=== PATIENT | male | born 1950 | race Caucasian/White ===

== ENCOUNTER 2021-10-06 13:49 | Outpatient (CLI) | payer MEDICARE, OTHER, SELFPAY ==
--- NOTE | 2021-10-06 | ECG_ITS ---
Measurements Intervals [place] Rate: 84 P: 96 CT: 227 QRS: 197 QRSD: 106 T: 150 QT: 349 QTc: 415 Interpretive Statements SINUS RHYTHM WITH FIRST DEGREE AV BLOCK LIMB LEAD REVERSAL ABNORMAL ECG Electronically Signed On 10-06-2021 14:54:09 SENIOR CARE MANAGER by Christo Deng D.O.
[2021-10-06 14:48] LABS: Hematocrit 45.4 % (42.0-52.0); Hemoglobin 14.9 g/dL (14.0-18.0)
[2021-10-06 19:17] LABS: Hemoglobin A1C 5.7 % (<5.7)
[2021-10-06 19:27] LABS: Alanine Aminotransferase 21 U/L (4-50); Albumin Level 4.4 g/dL (3.5-5.1); Alkaline Phosphatase 84 U/L (38-126); Anion Gap 9 mmol/L (8-16); Aspartate Amino Transferase 28 U/L (17-59); Bilirubin,Total 0.5 mg/dL (0.2-1.3); Blood Urea Nitrogen 26 mg/dL (9-20); Calcium 9.4 mg/dL (8.4-10.2); Carbon Dioxide 27 mmol/L (22-30); Chloride 105 mmol/L (98-107); Cholesterol 242 mg/dL (0-200); Estimated Glomerular Filt Rate 60; Glucose 92 mg/dL (65-110); HDL Direct 55 mg/dL; Potassium 4.2 mmol/L (3.4-5.0); Sodium 141 mmol/L (137-145); Triglycerides 108 mg/dL (<150)
[2021-10-06 19:38] LABS: LDL Cholesterol Direct 163 mg/dL
[2021-10-06 19:57] LABS: Prostate Specific Antigen 0.5 ng/mL (< OR = 4.0)
[2021-10-06 20:07] LABS: Urine Cotinine NEGATIVE
== END 2021-10-06 13:50 | disposition home or self-care (01) ==
PROVIDERS: PCP Nurse Practitioner; Referring Provider Orthopaedic Surgery; Visit Provider Nurse Practitioner
DX: E11.9 Type 2 diabetes mellitus without complications (principal); Z83.3 Family history of diabetes mellitus; Z12.5 Encounter for screening for malignant neoplasm of prostate; Z01.818 Encounter for other preprocedural examination; M16.12 Unilateral primary osteoarthritis, left hip; I44.0 Atrioventricular block, first degree
CPT/HCPCS: 36415; 80053; 80061; 80307; 83036; 84153; 84443; 85014; 85018; 93005; G0103

== ENCOUNTER 2021-11-26 14:03 | Outpatient (CLI) | payer MEDICARE, OTHER, SELFPAY ==
[2021-11-26 15:43] LABS: Basophils Absolute Auto 0.1 K/mm3 (0.0-0.1); Basophils Percent Auto 0.5 % (0.2-1.2); Eosinophils Absolute Auto 0.2 K/mm3 (0-0.3); Eosinophils Percent Auto 1.7 % (0-4.4); Hematocrit 44.7 % (42.0-52.0); Hemoglobin 14.2 g/dL (14.0-18.0); Immature Granulocyte Absolute 0.02 K/mm3 (0.00-0.031); Immature Granulocyte Percent A 0.2 % (0-0.5); Lymphocytes Absolute Auto 3.13 K/mm3 (0.9-3.2); Lymphocytes Percent Auto 33.8 % (18.3-44.2); Mean Corpuscular HGB Conc 31.8 g/dl (32-36); Mean Corpuscular Hemoglobin 30.7 pg (26-34); Mean Corpuscular Volume 96.8 fl (80-100); Mean Platelet Volume 10.1 fl (7.4-10.4); Monocytes Absolute Auto 1.2 K/mm3 (0.1-0.6); Monocytes Percent Auto 13.3 % (2.6-8.5); Neutrophils Absolute Auto 4.7 K/mm3 (1.3-6.7); Neutrophils Percent Auto 50.5 % (45.5-73.1); Platelet Count Result 208 k/mm3 (150-375); Red Blood Count 4.62 M/mm3 (4.6-6.20); White Blood Count 9.3 K/mm3 (4.5-10.0)
[2021-11-26 15:47] LABS: Albumin Level 4.1 g/dL (3.5-5.1); Estimated Glomerular Filt Rate > 60; Glucose 109 mg/dL (65-110)
[2021-11-26 17:28] LABS: Urine Cotinine NEGATIVE
== END 2021-11-26 14:04 | disposition home or self-care (01) ==
LOC: ANHSURGERY 14:13
PROVIDERS: PCP Nurse Practitioner; Visit Provider Orthopaedic Surgery
DX: Z01.818 Encounter for other preprocedural examination (principal); M16.12 Unilateral primary osteoarthritis, left hip
CPT/HCPCS: 80307; 82040; 82565; 82947; 85025; 87081

== ENCOUNTER 2021-12-23 00:14 | Day surgery (SDC) | payer MEDICARE, OTHER, SELFPAY ==
[2021-11-26 14:21] VITALS: BMI 31.3
--- NOTE | 2021-11-26 14:41 | PC.NURSE ---
Report to the Outpatient Waiting Room, entrance under the green pavilion located off [facility], at time _0600 on date _12/23/21 . OR Time: _729 . - You and your visitor will be asked a series of questions to screen for COVID 19 for your protection. - A mask is required within the hospital. Preoperative COVID Testing Requirements: No COVID Test needed if: (proof is required; if not received patient will have Rapid Test prior to entry) - Patient has received COVID Vaccine at least 14 days prior to procedure date or - Patient has positive COVID test result within last 90 days of surgery date. COVID Test needed if above criteria is not met If not COVID vaccinated a COVID test must be conducted within 72 hours of surgery and patient is asked to isolate self from time of testing until procedure. You will go to the [facility] for your COVID testing. The [facility] site is located at the corner of [address] from [facility]. You will only be called if COVID results are positive and your surgeon may reschedule your elective surgery date. Patients may have clear liquids (water, carbonated beverages, clear teas, apple juice) until 3 hours prior to surgery with a maximum of 20 ounces. - No food from midnight until time of surgery Take the following medications with a SIP of water the morning of surgery: ___NONE Medications to discontinue per physician ___LUTEIN 3 DAYS PRE OP Date to take last dose__12/19/21 Please no make-up, nail thai, hairspray, perfume, deodorant, or body powder the day of surgery. No jewelry (including any body piercings) or valuables the day of surgery, leave them at home. Please take a shower or bath the night before, or the morning of, surgery with an antibacterial soap. Wear comfortable, loose fitting clothing. Children are encouraged to wear pajamas. - Jewelry must be removed prior to entering the operating room. Rings and piercings that are not removed may be cut off. - The hospital will not accept responsibility for valuables. - Please leave all valuables, including medications, at home the day of surgery. If you are going home after surgery, a licensed coach tour driver must drive you home. - NO public transportation without another adult. - We recommend that an adult stay with you for 24 hours following discharge. - We also recommend that you do not drive, make important decision, drink alcoholic beverages, or take any drugs that were not prescribed by your health care provider for at least 24 hours after your discharge time. One visitor will be allowed to accompany the patient into the hospital. Patients visitor will be instructed to remain with patient at all times or leave the building. We will allow the visitor to come back to the postoperative area when patient is ready. Follow any additional instructions given to you from your surgeon. VERBAL AND WRITTEN instructions given to __PATIENT and asked if any additional questions and then verbalized understanding. Patient advised to call surgeon office or pre surgery nurse liaison [phone] if any additional questions.
[2021-11-26 15:00] VITALS: BP 138/78; PULSE 66; RESP 18; TEMP 37.1; O2SAT 97
--- NOTE | 2021-12-22 10:47 | WPDANESEPPF ---
Anes - Initial Pre Proc Eval Procedure: Operation Date: 12/23/21 07:30 Proposed Procedures p Left Total Hip Arthroplasty - Matt Burris MD Date/Time: 12/22/21 10:47 Surgeon: Matt Burris MD Pre Op Diagnosis: primary oa left hip Patient Data Age: 71 Gender: M Height: 1.83 m Weight: 104.8 kg Last Vital Signs Temp 37.1 C 11/26/21 15:00 Pulse 66 11/26/21 15:00 Resp 18 11/26/21 15:00 BP 138/78 11/26/21 15:00 Pulse Ox 97 11/26/21 15:00 Allergies Allergy/AdvReac Type Severity Reaction Status Date / Time No Known Allergies Allergy Verified 12/23/21 06:32 Home Medications Medication Instructions Recorded Confirmed Type lutein 20 mg tablet 20 mg PO DAILY 06/11/21 12/23/21 History atorvastatin 20 mg tablet 20 mg PO DAILY #30 tablet 10/14/21 12/23/21 Rx acetaminophen 325 mg tablet 650 mg PO Q6H PRN 11/26/21 12/23/21 History ECG: Date of Service: 10/06/21 Procedure(s): CA 12 lead EKG Accession Number(s): [id number] cc: ~ Measurements Intervals [place] Rate: 84 P: 96 MT: 227 QRS: 197 QRSD: 106 T: 150 QT: 349 QTc: 415 Interpretive Statements SINUS RHYTHM WITH FIRST DEGREE AV BLOCK LIMB LEAD REVERSAL ABNORMAL ECG Electronically Signed On 10-06-2021 14:54:09 SOCIAL SERVICES TECHNICIAN by Christo Deng D.O. Patient hx anesthesia problems: none Family hx anesthesia problems: none Results Review: All pre-operative results and documents have been reviewed as part of the pre-operative evaluation. [facility] Past Medical History Medical History (Updated 12/22/21 @ 10:48 by Jose Leon MD) Arthritis of left hip Family history of diabetes mellitus Hypercholesterolemia Leg pain Painful joint Urination frequency Surgical History Surgical History History of surgery right long head biceps tendon torn and repaired Family History Family History Mother Breast cancer Diabetes mellitus Hypertension Father Diabetes mellitus Sibling Diabetes mellitus Social History Social History Smoking status: Never smoker Second hand tobacco smoke exposure: No Additional smoking assessment comments: DENIES ANY FORM OF TOBACCO USE Alcohol intake: current Alcohol use details: ONE DRINK PER MONTH Substance use: never Living arrangements: with family Spiritual care concerns: No Anes - Eval Final PreProcedure Day of Procedure 12/22/21 10:47 Patient weight: obese Heart: regular rate and rhythm Lungs: clear to auscultation and normal air movement Airway: Mallampati scale class II Neurological: alert and oriented Last oral intake: >/= 8 hours ASA classification: II Emergent: no Anesthetic plan: proceed Anesthesia type and monitoring: general ETT Results Review: All pre-operative results and documents have been reviewed as part of the pre-operative evaluation. Informed Consent: The patient's anesthetic plan and its attendant risks and benefits were discussed with the patient/family/POA. Questions were solicited and answers provided to the satisfaction of the patient/family/POA.
[2021-12-22 11:16] VITALS: BP 161/78; PULSE 84; RESP 14; TEMP 36.2; O2SAT 100
[2021-12-23] VITALS (12 sets, daily range): BP systolic 131–166; BP diastolic 66–84; PULSE 60–97; RESP 8–22; TEMP 36.2–36.8; O2SAT 94–100
--- NOTE | ~2021-12-23 | XR_ITS ---
EXAMINATION: XR hip LT min 2V DATE: 12/23/2021 10:26 INDICATION: Total left hip arthroplasty. Postop. TECHNIQUE: 2 views of left hip were obtained. COMPARISON: Left hip radiographs 12/23/2021 FINDINGS: There is a total left hip arthroplasty in near-anatomic alignment. No fracture. There is ga s in the hip joint and soft tissues, consistent with recent surgery. IMPRESSION: 1. Total left hip arthroplasty in near-anatomic alignment. Reviewed, dictated and finalized at location A.
[2021-12-23] MEDS: TRANEXAMIC ACID 1,000MG/ISO100 1,000 MG/100 ML BAG 200 MG IVPB (06:19)
[2021-12-23] MEDS: ACETAMINOPHEN 500 MG TABLET 1000 MG PO (06:19)
[2021-12-23] MEDS: LACTATED RINGERS 1,000 ML 30 ML IV CONT ×2 (06:19→10:45)
--- NOTE | 2021-12-23 07:09 | WPDHPUPDATE1 ---
History and Physical Update Update Date/Time: 12/23/21 07:09 History and Physical has been reviewed, including an updated exam of the patient. There are NO changes in the patient's condition. Risks, benefits, and alternatives have been discussed and questions answered. Patient agrees to proceed with procedure.
[2021-12-23] MEDS: ceFAZolin 2 GM/D5W 50 ML 2 GM/50 ML BAG IVPB ×2 (07:26→17:41)
--- NOTE | 2021-12-23 10:25 | W.PM.PROC2 ---
Procedure Note - Detailed Date of Procedure 12/23/21 Pre-op Diagnosis primary oa left hip Post-op Diagnosis Same Procedure Performed Left Total Hip Arthroplasty Surgeon Matt Burris MD Schedule Checker Ernestina Love PA-C Anesthesia General Findings Preoperative leg 1.6 cm short. Lengthening correction templated. Bone quality good. Partial leg length correction obtained. Description of Procedure The patient was given preoperative antibiotics. A general anesthetic was administered. The patient was carefully placed in the lateral decubitus position on the PEG board. The shoulders and hips were carefully positioned for component and leg length positioning reference. The hip was prepped and draped in the usual sterile fashion. A longitudinal incision was created over the posterior aspect of the greater trochanter. Careful dissection was brought down through the deep fascia with electrocautery. A minimally invasive optimized posterior approach to the hip was performed. The short external rotators and capsule were taken down in an L-shaped capsulotomy. The tissue was tagged for later repair using number 2 high strength suture. The femoral neck was measured and taken in situ. The femoral head was removed. The acetabulum was carefully exposed. The inferior capsule was released. The labrum was resected. The acetabulum was sequentially reamed to one over the intended cup size. The cup was impacted into position with excellent press-fit. Typical anatomic landmarks, including the bony contact points as well as the inferior transverse acetabular ligament were used to confirm cup positioning with preoperative templating. Attention was turned to the femur, which was carefully exposed. The hip was reamed and then broached sequentially. Excellent press-fit was obtained with the broach. The hip was trialed. Measurements were utilized, including the lesser trochanter as well as the center of the femoral head and the tip of the trochanter, and excellent assessment of the offset and leg lengths were confirmed. The real component was impacted into position. Trialing confirmed appropriate leg length and offset with soft tissue balancing as well apparent feel of the leg, both at the knee and the heel. Soft tissues were assessed using the the iliotibial band. Reduction of the posterior capsule and external rotators were also used as a secondary assessment. The hip was copiously irrigated with pulsatile lavage antibiotic solution periodically throughout the procedure. The real components were then assembled and reduced. The hip was stable throughout typical maneuvers, including extension, external rotation to 70 degrees, the position of sleep as well as flexion to 90 degrees with internal rotation past 45 degrees. The shake test confirmed stability without impingement. Osteophytes were removed as necessary. The short external rotators and capsule were repaired back to the posterior trochanter through drill holes. The deep fascia was repaired with running number 2 Quill suture, followed by 0 Stratafix suture and 2-0 Stratafix suture in the dermis. Steri-Strips were placed on the skin, followed by a sterile silver occlusive dressing. There were no complications. Meticulous hemostasis was maintained with the AquaMantys device. The patient was brought to the recovery room in stable condition. There were no complications. Physician hr administrative assistant, Ernestina Love PA-C, required for surgery; including patient positioning, draping, tissue retraction, maintaining instrument position, hip dislocation/ relocation, wound closure, and dressing placement. Implants The Accolade II hip stem, 132 degree size 7 , was utilized with excellent press-fit. The 58mm 10 degree elevated Trident II acetabular component was impacted with excellent press-fit stability. The +2.5, 36 mm Biolox ceramic femoral head was utilized. Estimated Blood Loss 200 Drains No Packing No Pathology N
--- NOTE | 2021-12-23 10:28 | SUR.PHASEI ---
XRAY OF HIP DONE AT BEDSIDE.
--- NOTE | 2021-12-23 11:11 | ADMGEN ---
This patient, Sancho Morales, was admitted to Medical Room 246-. Patient/family oriented to hospital policies and general routines including ID bracelet, bed and alarms, visiting hours, pain management, procedures, bathroom and other care routines, personal items, smoking policy, room service/diet, and visiting hours. Information on how to activate the Rapid Response Team has been discussed. Patient/Family are encouraged to report perceived risks to care and to ask questions if they do not understand what they are told or what they should do.
[2021-12-23] MEDS: SODIUM CHLORIDE 0.9% IV 1,000 ML 125 ML IV CONT (11:26)
[2021-12-23] MEDS: SENNA/DOCUSATE SODIUM TABLET 2 TAB PO (17:42)
[2021-12-23] MEDS: ASPIRIN 81 MG ENTERIC TABLET PO (17:42)
[2021-12-23] MEDS: MELOXICAM 7.5 MG TABLET PO (17:42)
[2021-12-23] MEDS: FAMOTIDINE 20 MG TABLET PO (20:53)
[2021-12-24] MEDS: ceFAZolin 2 GM/D5W 50 ML 2 GM/50 ML BAG IVPB ×2 (00:11→10:17)
[2021-12-24 00:36] VITALS: BP 121/66; PULSE 90; RESP 18; TEMP 36.8; O2SAT 96
[2021-12-24 03:58] VITALS: BP 121/61; PULSE 86; RESP 20; TEMP 36.6; O2SAT 96
--- NOTE | 2021-12-24 08:45 | P.DS_ITS ---
DS: Admitting Diagnosis Discharge Date 12/24/21 Admitting Diagnosis OA Left hip DS: Discharge Diagnosis Discharge Diagnosis (1) Status post total hip replacement, left: Code(s): Z96.642 - Presence of left artificial hip joint Status: Acute Assessment and Plan: Postop day 1: Total hip arthroplasty. Patient tolerated procedure well. No complications. Pain manageable with pain medication. No numbness or tingling. We had a lengthy discussion regarding postoperative wound care, limitations, expectations, and exercises. Patient shows good understanding. Patient has had initial physical therapy and is tolerating it well. DVT prophylaxis: 81 mg baby aspirin b.i.d. for 14 days. Short frequent walks. Pain medication: Percocet. Meloxicam Patient has followup appointment with Dr. Burris in 3 weeks DS: Summary Hospital Course Reason for hospitalization: Total hip arthroplasty Hospital Course: Patient tolerated procedure well. Has had initial PT/OT and made good progress. Status at Discharge Functional status at discharge: uses cane/walker Overall status at discharge: patient is progressing back to baseline Time Spent with Patient Time attestation: Total time spent providing and/or coordinating discharge services: Exam Narrative: Overweight 71 y/o male. Resting comfortably in bed. Wearing compression socks bilaterally. Dressing dry and intact with no drainage. Moderate swelling. No ecchymosis. No erythema. No hematoma. Range of motion limited due to pain. Calf nontender. Thigh nontender. Neurologic status intact. No varicosities. Distal pulses palpable. Discharge Plan Discharge Patient Disposition: Home, Self-Care Discharge Instructions: See green instruction sheet Stand Alone Forms: General Discharge Instructions Follow-up/Referrals: Ernestina Love PA [Physician Track Laborer] - Discharge Medications: New meloxicam 15 mg tablet 15 mg PO DAILY Qty: 30 RF: 0 aspirin 81 mg tablet,delayed release (DR/EC) 81 mg PO BID 14 Days Qty: 28 RF: 0 oxycodone-acetaminophen 5-325 mg tablet 1 - 2 tablet PO Q4-6H MDD 6 PRN (Reason: pain) Qty: 30 RF: 0 Continued lutein 20 mg tablet 20 mg PO DAILY RF: 0 acetaminophen 325 mg tablet 650 mg PO Q6H PRN (Reason: Pain) RF: 0 atorvastatin 20 mg tablet 20 mg PO DAILY Qty: 30 RF: 5
--- NOTE | 2021-12-24 09:15 | WPDANESPN ---
Anes - Prog Note Post-Op Date/Time: 12/24/21 09:15 Cardiovascular status: normal Respiratory status: normal Airway patency: baseline Mental status: baseline Post-Op hydration status: normal Vital Signs: Last Vital Signs Temp 97.9 F 12/24/21 03:58 Pulse 86 12/24/21 03:58 Resp 20 12/24/21 03:58 BP 121/61 12/24/21 03:58 Pulse Ox 96 12/24/21 03:58 Pain Score (VAS): 3 I/O: Intake & Output 12/23/21 12/24/21 12/24/21 23:59 07:59 15:59 Intake Total 1910 540 200 Output Total 1150 Balance 1910 -610 200 Patient Feedback: Patient satisfied with anesthetic care.pt feels peripheral nerve block still providing some relief.
[2021-12-24] MEDS: SENNA/DOCUSATE SODIUM TABLET 2 TAB PO (10:18)
[2021-12-24] MEDS: ASPIRIN 81 MG ENTERIC TABLET PO (10:18)
[2021-12-24] MEDS: FAMOTIDINE 20 MG TABLET PO (10:18)
[2021-12-24] MEDS: ATORVASTATIN 20 MG TABLET PO (10:18)
[2021-12-24] MEDS: polyethylene glycoL 3350 17 GM POWD.PACK PO (10:18)
[2021-12-24] MEDS: MELOXICAM 7.5 MG TABLET PO (10:18)
[2021-12-24] MEDS: ACETAMINOPHEN 325 MG TABLET 650 MG PO (10:30)
--- NOTE | 2021-12-24 11:18 | PCCCNOTE ---
On 12/24/21, the student, [Barbara Mendoza ], provided care and completed [facility] hospital documentation on this patient. I have reviewed the student's documentation and agree with the findings.
== END 2021-12-24 12:45 | disposition home or self-care (01) ==
LOC: ANHSURGERY 05:56 → ANH2MED 11:02
PROVIDERS: PCP Nurse Practitioner; Visit Provider Orthopaedic Surgery
PROC: (CPT 27130; principal; 2021-12-23 07:30)
DX: M16.12 Unilateral primary osteoarthritis, left hip (principal); E78.00 Pure hypercholesterolemia, unspecified; E66.9 Obesity, unspecified; Z68.30 Body mass index [BMI] 30.0-30.9, adult
CPT/HCPCS: 27130; 36415; 73502; 86850; 86900; 86901; 97110; 97116; 97161; 97165; 97530; 97535; A9270; C1776; J0131; J0171; J0330; J0690; J1100; J1170; J1885; J2250; J2270; J2405; J2704; J2710; J2795; J3010; J7030; J7120

== ENCOUNTER 2022-06-12 07:02 | Outpatient (CLI) | payer MEDICARE, OTHER, SELFPAY ==
[2022-06-12 07:58] LABS: Alanine Aminotransferase 19 U/L (6-50); Alkaline Phosphatase 88 U/L (38-126); Anion Gap 7 mmol/L (8-16); Aspartate Amino Transferase 24 U/L (17-59); Bilirubin,Total 0.5 mg/dL (0.2-1.3); Blood Urea Nitrogen 28 mg/dL (9-20); Calcium 8.8 mg/dL (8.4-10.2); Carbon Dioxide 28 mmol/L (22-30); Chloride 105 mmol/L (98-107); Cholesterol 151 mg/dL (0-200); Estimated Glomerular Filt Rate 60; Glucose 106 mg/dL (65-110); HDL Direct 50 mg/dL; Potassium 4.1 mmol/L (3.4-5.0); Sodium 140 mmol/L (137-145); Triglycerides 63 mg/dL (<150)
[2022-06-12 08:09] LABS: LDL Cholesterol Direct 84 mg/dL
== END 2022-06-12 07:03 | disposition home or self-care (01) ==
PROVIDERS: PCP Nurse Practitioner; Visit Provider Nurse Practitioner
DX: E78.5 Hyperlipidemia, unspecified (principal)
CPT/HCPCS: 36415; 80053; 80061

== ENCOUNTER 2022-12-29 10:00 | Outpatient (CLI) | payer MEDICARE, OTHER, SELFPAY ==
[2022-12-29 10:46] LABS: Alanine Aminotransferase 25 U/L (6-50); Albumin Level 4.2 g/dL (3.5-5.1); Alkaline Phosphatase 83 U/L (38-126); Anion Gap 5 mmol/L (8-16); Aspartate Amino Transferase 26 U/L (17-59); Bilirubin,Total 0.8 mg/dL (0.2-1.3); Blood Urea Nitrogen 25 mg/dL (9-20); Calcium 8.7 mg/dL (8.4-10.2); Carbon Dioxide 31 mmol/L (22-30); Chloride 105 mmol/L (98-107); Cholesterol 149 mg/dL (0-200); Estimated Glomerular Filt Rate > 60; Glucose 90 mg/dL (65-110); HDL Direct 48 mg/dL; Potassium 4.1 mmol/L (3.4-5.0); Sodium 141 mmol/L (137-145); Triglycerides 75 mg/dL (<150)
[2022-12-29 10:57] LABS: LDL Cholesterol Direct 83 mg/dL
[2022-12-29 11:16] LABS: Prostate Specific Antigen 0.7 ng/mL (< OR = 4.0)
[2023-01-01 13:46] LABS: Testosterone Total 499 ng/dL (250-1100)
== END 2022-12-29 10:01 | disposition home or self-care (01) ==
LOC: ANHLAB 10:02
PROVIDERS: PCP Internal Medicine; Visit Provider Nurse Practitioner
DX: E78.00 Pure hypercholesterolemia, unspecified (principal); Z79.899 Other long term (current) drug therapy; Z12.5 Encounter for screening for malignant neoplasm of prostate; E78.5 Hyperlipidemia, unspecified; N52.9 Male erectile dysfunction, unspecified
CPT/HCPCS: 36415; 80053; 80061; 84153; 84403; G0103

== ENCOUNTER 2023-12-22 13:21 | Outpatient (CLI) | payer MEDICARE, OTHER, SELFPAY ==
--- NOTE | ~2023-12-22 | XR_ITS ---
XR hip LT 2V w AP pelvis DATE: 12/22/2023 13:43 INDICATION: Left hip replacement 2 years ago TECHNIQUE: AP pelvis. AP and lateral views of left hip COMPARISON: None FINDINGS: Status post left total hip arthroplasty. No fracture or dislocation, periosteal reaction or bone destruction of the left hip. There is mild osteitis pubis. There is normal alignment at the pubic symphysis and sacroiliac joints. No pelvic fracture or bone destruction. There is minimal levoscoliosis of lumbar spine and multilevel degenerative disc disease, particularly at L2-3, L4-5 and L5-S1. IMPRESSION: Status post left total hip arthroplasty Mild osteitis pubis Multilevel degenerative disc disease of the lumbar spine Reviewed, dictated and finalized at location B.
== END 2023-12-22 13:22 | disposition home or self-care (01) ==
PROVIDERS: PCP Nurse Practitioner; Visit Provider Orthopaedic Surgery
DX: M16.12 Unilateral primary osteoarthritis, left hip (principal); M51.36 Other intervertebral disc degeneration, lumbar region
CPT/HCPCS: 73502

== ENCOUNTER 2025-01-17 09:10 | Outpatient (CLI) | payer MEDICARE, OTHER, SELFPAY ==
[2025-01-17 09:47] LABS: Alanine Aminotransferase 20 U/L (6-50); Alkaline Phosphatase 89 U/L (38-126); Anion Gap 3 mmol/L (4-12); Aspartate Amino Transferase 25 U/L (17-59); Bilirubin,Total 0.5 mg/dL (0.2-1.3); Blood Urea Nitrogen 23 mg/dL (9-20); Calcium 8.8 mg/dL (8.4-10.2); Carbon Dioxide 34 mmol/L (22-30); Chloride 103 mmol/L (98-107); Cholesterol 167 mg/dL (0-200); Estimated Glomerular Filt Rate > 60; Glucose 69 mg/dL (65-110); HDL Direct 56 mg/dL; Potassium 3.9 mmol/L (3.4-5.0); Sodium 140 mmol/L (137-145); Triglycerides 94 mg/dL (<150)
[2025-01-17 09:59] LABS: LDL Cholesterol Direct 79 mg/dL
[2025-01-17 10:16] LABS: Prostate Specific Antigen 0.7 ng/mL (< OR = 4.0)
== END 2025-01-17 09:11 | disposition home or self-care (01) ==
PROVIDERS: PCP Nurse Practitioner; Visit Provider Nurse Practitioner
DX: Z12.5 Encounter for screening for malignant neoplasm of prostate (principal); E78.5 Hyperlipidemia, unspecified; E78.49 Other hyperlipidemia
CPT/HCPCS: 36415; 80053; 80061; 84153; G0103

== ENCOUNTER 2025-02-08 08:35 | Emergency (ER) | payer MEDICARE, OTHER, SELFPAY ==
[2025-02-08] VITALS (28 sets, daily range): BP systolic 124–164; BP diastolic 76–101; PULSE 78–93; RESP 13–22; TEMP 36.6; O2SAT 92–100
--- NOTE | ~2025-02-08 | CT_ITS ---
Clinical Indication: Shortness of breath CT Scan of the Chest with Contrast: Technique: Contiguous sections were acquired throughout the chest after intravenous administration of 100 cc of Omnipaque 350. Dose reduction technique was used on this scan by utilizing automated expos ure control and iterative reconstruction technique. The dose-length product (DLP) was 599.93 mGy-cm. Findings: There is no evidence of any significant mediastinal, hilar or axillary lymphadenopathy. There are ext ensive pulmonary emboli. There is involvement of the right main pulmonary artery with extension of em boli into the lobar and segmental level arteries throughout the right lung. There are emboli at the l eft upper and lower lumbar level pulmonary arteries, again with extension to segmental level branches in the upper and lower lobes. No saddle embolus. There is probable reversal of the LV-RV ratio.. The re is no evidence of aortic dissection or aneurysm. There is no evidence of pleural or pericardial effusion. The lungs are clear. No pulmonary nodules or infiltrates are noted. Images through the upper abdomen reveal no abnormalities. Impression: Extensive bilateral pulmonary emboli, as detailed above. Findings consistent with associated right he art strain with reversal of the LV-RV ratio. Clear lungs. Case discussed with Dr. De La Rosa at the time of this reading. Reviewed, dictated and finalized at location M. Impression: Extensive bilateral pulmonary emboli, as detailed above. Findings consistent wi th associated right heart strain with reversal of the LV-RV ratio. Clear lungs. Case discussed with Dr. De La Rosa at the time of this reading.
--- NOTE | ~2025-02-08 | XR_ITS ---
XR chest 2V Ordering provider: Jose Heart III, DO History: 74 years Male with . sob . Comparison: None. FINDINGS: MEDIASTINUM: The cardiac silhouette is not enlarged. LUNGS: No infiltrates, effusions or pneumothorax. Underlying emphysematous changes. OTHER: No free air under the diaphragm. Degenerative changes of the spine. Mild dextroscoliosis. Supe rficial IMPRESSION: No acute cardiopulmonary pathology. Reviewed, dictated and finalized at location A.
--- NOTE | 2025-02-08 08:46 | ECG_ITS ---
Test Date: 2025-02-08 08:53:28 Measurements Intervals [place] Rate: 83 P: 33 [place]: 224 QRS: -30 QRSD: 109 T: -11 QT: 372 QTc: 438 Interpretive Statements SINUS RHYTHM WITH FIRST DEGREE AV BLOCK BORDERLINE LEFT AXIS DEVIATION [QRS AXIS < -20] No previous ECG available for comparison Electronically Signed On 02-08-2025 14:07:49 CDT by Antione Burdick M.D.
[2025-02-08 09:05] LABS: Basophils Absolute Auto 0.1 K/mm3 (0.0-0.1); Basophils Percent Auto 0.4 % (0.2-1.2); Eosinophils Absolute Auto 0.1 K/mm3 (0-0.3); Hematocrit 48.4 % (42.0-52.0); Hemoglobin 15.2 g/dL (14.0-18.0); Immature Granulocyte Absolute 0.05 K/mm3 (0.00-0.031); Immature Granulocyte Percent A 0.4 % (0-0.5); Lymphocytes Absolute Auto 2.12 K/mm3 (0.9-3.2); Lymphocytes Percent Auto 17.7 % (18.3-44.2); Mean Corpuscular HGB Conc 31.4 g/dl (32-36); Mean Corpuscular Hemoglobin 29.1 pg (26-34); Mean Corpuscular Volume 92.7 fl (80-100); Mean Platelet Volume 9.8 fl (7.4-10.4); Monocytes Absolute Auto 1.1 K/mm3 (0.1-0.6); Monocytes Percent Auto 9.3 % (2.6-8.5); Neutrophils Absolute Auto 8.6 K/mm3 (1.3-6.7); Neutrophils Percent Auto 71.2 % (45.5-73.1); Platelet Count Result 172 k/mm3 (150-375); Red Blood Count 5.22 M/mm3 (4.6-6.20); Red Cell Distribution Width 14.5 % (11.5-14.5)
[2025-02-08 09:15] LABS: Alanine Aminotransferase 31 U/L (6-50); Albumin Level 4.3 g/dL (3.5-5.1); Alkaline Phosphatase 106 U/L (38-126); Anion Gap 7 mmol/L (4-12); Aspartate Amino Transferase 51 U/L (17-59); Blood Urea Nitrogen 32 mg/dL (9-20); Carbon Dioxide 29 mmol/L (22-30); Chloride 108 mmol/L (98-107); Estimated CRCL calculation 52 ml/min; Estimated Glomerular Filt Rate 56; Glucose 115 mg/dL (65-110); Potassium 3.6 mmol/L (3.4-5.0); Sodium 144 mmol/L (137-145)
[2025-02-08 09:38] LABS: INR 1.3; Prothrombin Time 16.3 Seconds (11.1-14.7)
[2025-02-08 09:39] LABS: Partial Thromboplastin Time 26.5 Seconds (22.3-36.8)
--- NOTE | 2025-02-08 09:39 | ED_ITS ---
HPI - SOB/Dyspnea General Chief Complaint: Shortness of Breath/Dyspnea <DELORES Bee Last Filed: 02/08/25 18:47> Stated Complaint: SOB since this morning <DELORES Bee Last Filed: 02/08/25 18:47> Time Seen by Provider: 02/08/25 08:55 <DELORES Bee Last Filed: 02/08/25 18:47> Source: patient <DELORES Bee Last Filed: 02/08/25 18:47> Mode of arrival: ambulatory <DELORES Bee Last Filed: 02/08/25 18:47> Limitations: no limitations <DELORES Bee Last Filed: 02/08/25 18:47> History of Present Illness HPI Narrative: Patient is a 74-year-old male who presents the ED with report of shortness of breath. Patient reports over the last 1 week, he has had progressively worsening shortness of breath, worse with any type of exertion. States his asked him to bring up a bucket of water from the basement today. He attempted to do this, but became very short of breath, diffusely weak. [place] as though he had no strength. He states he had to rest for 20 minutes before he could resume the activity. He then went up stairs and sat down, developed a hot flash. He then prompted here for further evaluation. He denied having chest pain at any time over the last 1 week. Denies recent cough or cold symptoms. Denies fevers. Denies pain or swelling in his legs. Denies history of heart or lung issues. <DELORES Bee Last Filed: 02/08/25 18:47> Related Data Home Medications: Home Medications ?Medication ?Instructions ?Recorded ?Confirmed ?Last Taken ?Type lutein 20 mg tablet 20 mg PO DAILY 06/11/21 01/17/25 12/19/21 History ginkgo biloba leaf extract 60 mg 60 mg PO BID 12/29/22 01/17/25 Unknown History capsule <DELORES Bee Last Filed: 02/08/25 18:47> Allergies/Adverse Reactions: Allergies Allergy/AdvReac Type Severity Reaction Status Date / Time No Known Allergies Allergy Verified 02/08/25 08:55 <Sheree De La Rosa PA-C - Last Filed: 02/08/25 18:47> Review of Systems 2 Review of Systems: All systems reviewed & are unremarkable except as noted in HPI. <Sheree De La Rosa PA-C - Last Filed: 02/08/25 18:47> All systems reviewed & are unremarkable except as noted in HPI and below < Sheree De La Rosa PA-C - Last Filed: 02/08/25 18:47> [facility] Past Medical History Medical History: Medical History Hypercholesterolemia Family history of diabetes mellitus Urination frequency Leg pain Painful joint Arthritis of left hip <Sheree De La Rosa PA-C - Last Filed: 02/08/25 18:47> Surgical History Surgical History: Surgical History History of total left hip replacement (~12/23/21) History of surgery right long head biceps tendon torn and repaired <Sheree De La Rosa PA-C - Last Filed: 02/08/25 18:47> Family History Family History: Family History Mother Breast cancer Diabetes mellitus Hypertension Father Diabetes mellitus Sibling Diabetes mellitus Non-Hodgkins lymphoma Sibling No problems noted. <Sheree De La Rosa PA-C - Last Filed: 02/08/25 18:47> Social History Social History: Social History Smoking status: Never smoker Second hand tobacco smoke exposure: No Additional smoking assessment comments: DENIES ANY FORM OF TOBACCO USE Alcohol intake: current Alcohol use details: ONE DRINK PER MONTH Substance use: never Substance use type: does not use Do You Feel Safe in your Home?: Yes Lack of Transportation: No Lack of Food: Never True Current Housing: I Have Housing Concerned About Future Housing: No Difficulty Paying Gas/Electric Bills: No Difficulty Paying for Meds: No Currently Unemployed: No Education: Grade School Difficulty w/ Childcare or Family Care: No Living arrangements: with family Occupation/Education: retired 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 HEAD: Normocephalic, atraumatic. RESPIRATORY: Airway patent, respirations nonlabored. Clear to auscultation bilaterally, no rales, rhonchi, wheezing. No appreciable focal lung sounds. CARDIOVASCULAR: Regular rate and rhythm without murmurs, rubs, or gallops. MUSCULOSKELETAL: Moves all extremities. No gross deformities. No significant peripheral edema. No calf tenderness. SKIN: Warm, dry, normal color. NEURO: A&O X3. Speech clear. Cranial nerves II-XII grossly intact. Steady gait. No ataxic movements. No focal deficits. PSYCHIATRIC: Appropriate mood and affect. Normal interaction. <DELORES Bee Last Filed: 02/08/25 18:47> Course Vital Signs Vital signs: Vital Signs Temperature 97.8 F 02/08/25 08:41 Pulse Rate 91 02/08/25 08:41 Respiratory Rate 18 02/08/25 08:41 Blood Pressure 153/85 H 02/08/25 08:41 Pulse Oximetry 95 02/08/25 08:41 Oxygen Delivery Room Air 02/08/25 08:41 Temperature 97.8 F 02/08/25 08:41 Pulse Rate 89 02/08/25 17:01 Respiratory Rate 18 02/08/25 17:01 Blood Pressure 139/96 H 02/08/25 17:01 Pulse Oximetry 97 02/08/25 17:01 Oxygen Delivery Room Air 02/08/25 08:50 <DELORES Bee Last Filed: 02/08/25 18:47> Vital Signs Temperature 97.8 F 05/22/25 08:41 Pulse Rate 91 02/08/25 08:41 Respiratory Rate 18 02/08/25 08:41 Blood Pressure 153/85 H 02/08/25 08:41 Pulse Oximetry 95 02/08/25 08:41 Oxygen Delivery Room Air 02/08/25 08:41 Temperature 97.8 F 02/08/25 08:41 Pulse Rate 89 02/08/25 17:01 Respiratory Rate 18 02/08/25 17:01 Blood Pressure 139/96 H 02/08/25 17:01 Pulse Oximetry 97 02/08/25 17:01 Oxygen Delivery Room Air 02/08/25 08:50 <Jose Landin Heart III, DO - Last Filed: 02/08/25 19:09> MDM - SOB/Dyspnea MDM Narrative Medical decision making narrative: Patient presented to ED with 1 week history of progressively worsening worse with exertion. Vital signs are stable upon arrival. Patient is 92-95% on RA. Patent does not appear in acute distress. EKG with NSR, some nonspecific ST changes. Patient denies any CP at this time or over the past 1 week. CBC with white blood cell count of 12. CMP is unremarkable. Slight elevation creatinine compared to baseline. Will give fluids. Chest x-ray is clear, however BNP is markedly elevated to almost 7000. Patient w/o known hx of CHF. No significant peripheral edema on exam or other evidence of fluid overload at this time. Baseline troponin did result elevated at 0.076. Will continue to trend. D- dimer also elevated to 14.48. CTA of chest was obtained and showing extensive alvarado PE, associated R heart strain, reversal of LV/RV ratio. Discussed lab and imaging findings with patient, need for admission/transfer. Heparin bolus/gtt started. Discussed case with Dr. Smallwood, hospitalist, did recommend transfer for higher level of care given presence of R heart strain. Discussed with patient need for transfer. He would [facility] hospital. Will discuss with them. Patient denies any previous history of DVT. Denies any recent surgery, hospitalization, immobilization. Denies recent long distance travel. Denies known history of cancer. COVID is negative here. No other obvious risk factors for blood clots. Patient is hemodynamically stable at this time. He is not requiring supplemental oxygen at this time. Discussed case with Dr. Vázquez, hospitalist @ [facility], accepted patient for admission/transfer. Awaiting bed placement. Patient and family in agreement with plan. <Sheree De La Rosa PA-C - Last Filed: 02/08/25 18:47> Medical Records Attestation: I reviewed the patient's medical records. <DELORES Bee Last Filed: 02/08/25 18:47> Lab Data Attestation: I reviewed the patient's lab results. <Sheree De La Rosa PA-C - Last Filed: 02/08/25 18:47> Result diagrams: 02/08/25 08:56 02/08/25 08:56 <DELORES Bee Last Filed: 02/08/25 18:47> Labs: Lab Results 02/08/25 02/08/25 02/08/25 Range/Units 08:56 08:59 10:03 WBC 12.0 H (4.5-10.0) K/mm3 RBC 5.22 (4.6-6.20) M/mm3 Hgb 15.2 (14.0-18.0) g/dL Hct 48.4 (42.0-52.0) % MCV 92.7 (80-100) fl MCH 29.1 (26-34) pg MCHC 31.4 L (32-36) g/dl RDW 14.5 (11.5-14.5) % Plt Count 172 (150-375) k/mm3 MPV 9.8 (7.4-10.4) fl Immature Gran % (Auto) 0.4 (0-0.5) % Neut % (Auto) 71.2 (45.5-73.1) % Lymph % (Auto) 17.7 L (18.3-44.2) % [place] % (Auto) 9.3 H (2.6-8.5) % Eos % (Auto) 1.0 (0-4.4) % Baso % (Auto) 0.4 (0.2-1.2) % Lymph # (Auto) 2.12 (0.9-3.2) K/mm3 [place] # (Auto) 1.1 H (0.1-0.6) K/mm3 Eos # (Auto) 0.1 (0-0.3) K/mm3 Baso # (Auto) 0.1 (0.0-0.1) K/mm3 Abs Immat Gran (auto) 0.05 H (0.00-0.031) K/mm3 Absolute Neuts (auto) 8.6 H (1.3-6.7) K/mm3 Absolute Nucleated RBC 0.000 (0.0-0.012) K/mm3 Nucleated RBC % 0.0 (0.0-0.2) % PT 16.3 H (11.1-14.7) Seconds INR 1.3 APTT 26.5 (22.3-36.8) Seconds D-Dimer 14.48 H (<0.48) ug/mL Sodium 144 (137-145) mmol/L Potassium 3.6 (3.4-5.0) mmol/L Chloride 108 H (98-107) mmol/L Carbon Dioxide 29 (22-30) mmol/L Anion Gap 7 (4-12) mmol/L BUN 32 H (9-20) mg/dL Creatinine 1.26 (0.7-1.3) mg/dL Estim Creat Clear Calc 52 ml/min Estimated GFR 56 L (59 - ) Glucose 115 H (65-110) mg/dL Calcium 9.0 (8.4-10.2) mg/dL Total Bilirubin 1.0 (0.2-1.3) mg/dL AST 51 (17-59) U/L ALT 31 (6-50) U/L Alkaline Phosphatase 106 (38-126) U/L Troponin I 0.076 H* (0.000-0.034) ng/mL NT-Pro-B Natriuret Pep 6990 H (19.9-100) pg/mL Total Protein 8.0 (6.3-8.2) g/dL Albumin 4.3 (3.5-5.1) g/dL Influenza A (RT-PCR) Negative (Negative) Influenza B (RT-PCR) Negative (Negative) RSV (RT-PCR) Negative (Negative) SARS-CoV-2 RNA (RT-PCR) Negative (Negative) 02/08/25 02/08/25 Range/Units 11:49 14:42 WBC (4.5-10.0) K/mm3 RBC (4.6-6.20) M/mm3 Hgb (14.0-18.0) g/dL Hct (42.0-52.0) % MCV (80-100) fl MCH (26-34) pg MCHC (32-36) g/dl RDW (11.5-14.5) % Plt Count (150-375) k/mm3 MPV (7.4-10.4) fl Immature Gran % (Auto) (0-0.5) % Neut % (Auto) (45.5-73.1) % Lymph % (Auto) (18.3-44.2) % [place] % (Auto) (2.6-8.5) % Eos % (Auto) (0-4.4) % Baso % (Auto) (0.2-1.2) % Lymph # (Auto) (0.9-3.2) K/mm3 [place] # (Auto) (0.1-0.6) K/mm3 Eos # (Auto) (0-0.3) K/mm3 Baso # (Auto) (0.0-0.1) K/mm3 Abs Immat Gran (auto) (0.00-0.031) K/mm3 Absolute Neuts (auto) (1.3-6.7) K/mm3 Absolute Nucleated RBC (0.0-0.012) K/mm3 Nucleated RBC % (0.0-0.2) % PT (11.1-14.7) Seconds INR APTT (22.3-36.8) Seconds D-Dimer (<0.48) ug/mL Sodium (137-145) mmol/L Potassium (3.4-5.0) mmol/L Chloride (98-107) mmol/L Carbon Dioxide (22-30) mmol/L Anion Gap (4-12) mmol/L BUN (9-20) mg/dL Creatinine (0.7-1.3) mg/dL Estim Creat Clear Calc ml/min Estimated GFR (59 - ) Glucose (65-110) mg/dL Calcium (8.4-10.2) mg/dL Total Bilirubin (0.2-1.3) mg/dL AST (17-59) U/L ALT (6-50) U/L Alkaline Phosphatase (38-126) U/L Troponin I 0.083 H* 0.090 H* (0.000-0.034) ng/mL NT-Pro-B Natriuret Pep (19.9-100) pg/mL Total Protein (6.3-8.2) g/dL Albumin (3.5-5.1) g/dL Influenza A (RT-PCR) (Negative) Influenza B (RT-PCR) (Negative) RSV (RT-PCR) (Negative) SARS-CoV-2 RNA (RT-PCR) (Negative) <Sheree De La Rosa PA-C - Last Filed: 02/08/25 18:47> Lab Results 02/08/25 02/08/25 02/08/25 Range/Units 08:56 08:59 10:03 WBC 12.0 H (4.5-10.0) K/mm3 RBC 5.22 (4.6-6.20) M/mm3 Hgb 15.2 (14.0-18.0) g/dL Hct 48.4 (42.0-52.0) % MCV 92.7 (80-100) fl MCH 29.1 (26-34) pg MCHC 31.4 L (32-36) g/dl RDW 14.5 (11.5-14.5) % Plt Count 172 (150-375) k/mm3 MPV 9.8 (7.4-10.4) fl Immature Gran % (Auto) 0.4 (0-0.5) % Neut % (Auto) 71.2 (45.5-73.1) % Lymph % (Auto) 17.7 L (18.3-44.2) % [place] % (Auto) 9.3 H (2.6-8.5) % Eos % (Auto) 1.0 (0-4.4) % Baso % (Auto) 0.4 (0.2-1.2) % Lymph # (Auto) 2.12 (0.9-3.2) K/mm3 [place] # (Auto) 1.1 H (0.1-0.6) K/mm3 Eos # (Auto) 0.1 (0-0.3) K/mm3 Baso # (Auto) 0.1 (0.0-0.1) K/mm3 Abs Immat Gran (auto) 0.05 H (0.00-0.031) K/mm3 Absolute Neuts (auto) 8.6 H (1.3-6.7) K/mm3 Absolute Nucleated RBC 0.000 (0.0-0.012) K/mm3 Nucleated RBC % 0.0 (0.0-0.2) % PT 16.3 H (11.1-14.7) Seconds INR 1.3 APTT 26.5 (22.3-36.8) Seconds D-Dimer 14.48 H (<0.48) ug/mL Sodium 144 (137-145) mmol/L Potassium 3.6 (3.4-5.0) mmol/L Chloride 108 H (98-107) mmol/L Carbon Dioxide 29 (22-30) mmol/L Anion Gap 7 (4-12) mmol/L BUN 32 H (9-20) mg/dL Creatinine 1.26 (0.7-1.3) mg/dL Estim Creat Clear Calc 52 ml/min Estimated GFR 56 L (59 - ) Glucose 115 H (65-110) mg/dL Calcium 9.0 (8.4-10.2) mg/dL Total Bilirubin 1.0 (0.2-1.3) mg/dL AST 51 (17-59) U/L ALT 31 (6-50) U/L Alkaline Phosphatase 106 (38-126) U/L Troponin I 0.076 H* (0.000-0.034) ng/mL NT-Pro-B Natriuret Pep 6990 H (19.9-100) pg/mL Total Protein 8.0 (6.3-8.2) g/dL Albumin 4.3 (3.5-5.1) g/dL Influenza A (RT-PCR) Negative (Negative) Influenza B (RT-PCR) Negative (Negative) RSV (RT-PCR) Negative (Negative) SARS-CoV-2 RNA (RT-PCR) Negative (Negative) 02/08/25 02/08/25 Range/Units 11:49 14:42 WBC (4.5-10.0) K/mm3 RBC (4.6-6.20) M/mm3 Hgb (14.0-18.0) g/dL Hct (42.0-52.0) % MCV (80-100) fl MCH (26-34) pg MCHC (32-36) g/dl RDW (11.5-14.5) % Plt Count (150-375) k/mm3 MPV (7.4-10.4) fl Immature Gran % (Auto) (0-0.5) % Neut % (Auto) (45.5-73.1) % Lymph % (Auto) (18.3-44.2) % [place] % (Auto) (2.6-8.5) % Eos % (Auto) (0-4.4) % Baso % (Auto) (0.2-1.2) % Lymph # (Auto) (0.9-3.2) K/mm3 [place] # (Auto) (0.1-0.6) K/mm3 Eos # (Auto) (0-0.3) K/mm3 Baso # (Auto) (0.0-0.1) K/mm3 Abs Immat Gran (auto) (0.00-0.031) K/mm3 Absolute Neuts (auto) (1.3-6.7) K/mm3 Absolute Nucleated RBC (0.0-0.012) K/mm3 Nucleated RBC % (0.0-0.2) % PT (11.1-14.7) Seconds INR APTT (22.3-36.8) Seconds D-Dimer (<0.48) ug/mL Sodium (137-145) mmol/L Potassium (3.4-5.0) mmol/L Chloride (98-107) mmol/L Carbon Dioxide (22-30) mmol/L Anion Gap (4-12) mmol/L BUN (9-20) mg/dL Creatinine (0.7-1.3) mg/dL Estim Creat Clear Calc ml/min Estimated GFR (59 - ) Glucose (65-110) mg/dL Calcium (8.4-10.2) mg/dL Total Bilirubin (0.2-1.3) mg/dL AST (17-59) U/L ALT (6-50) U/L Alkaline Phosphatase (38-126) U/L Troponin I 0.083 H* 0.090 H* (0.000-0.034) ng/mL NT-Pro-B Natriuret Pep (19.9-100) pg/mL Total Protein (6.3-8.2) g/dL Albumin (3.5-5.1) g/dL Influenza A (RT-PCR) (Negative) Influenza B (RT-PCR) (Negative) RSV (RT-PCR) (Negative) SARS-CoV-2 RNA (RT-PCR) (Negative) <Jose Mushtaq Heart III, DO - Last Filed: 02/08/25 19:09> Imaging Data Attestation: I personally reviewed and interpreted this imaging study as follows: < DELORES Bee Last Filed: 02/08/25 18:47> Radiologist's impression: ITS Impressions Chest X-Ray 02/08/25 09:14 IMPRESSION: No acute cardiopulmonary pathology. Chest CTA 02/08/25 10:38 Impression: Extensive bilateral pulmonary emboli, as detailed above. Findings consistent with associated right heart strain with reversal of the LV-RV ratio. Clear lungs. Case discussed with Dr. De La Rosa at the time of this reading. <DELORES Bee Last Filed: 02/08/25 18:47> ECG Data EKG #1: Attestation: I personally reviewed and interpreted this ECG as follows: <DELORES Bee Last Filed: 02/08/25 18:47> ECG completion date: 02/08/25 <DELORES Bee Last Filed: 02/08/25 18:47> ECG completion time: 08:53 <DELORES Bee Last Filed: 02/08/25 18:47> EKG Interpretation: normal rate, sinus rhythm, non-specific ST changes (Some T-wave inversions in inferior leads) and other (First-degree AV block) <DELORES Bee Last Filed: 02/08/25 18:47> Critical Care Time Critical Care Time Critical Care Time: Yes <Jose Mushtaq Heart III, DO - Last Filed: 02/08/25 19:09> Total Critical Care Time: 35 <Jose Mushtaq Heart III, DO - Last Filed: 02/08/25 19:09> Discharge Plan Discharge Clinical Impression: Bilateral pulmonary embolism, Elevated troponin, Elevated brain natriuretic peptide (BNP) level <DELORES Bee Last Filed: 02/08/25 18:47> Patient Disposition: Acute Care Hospital <DELORES Bee Last Filed: 02/08/25 18:47> Condition: Serious <DELORES Bee Last Filed: 02/08/25 18:47> Patient Language: Bulgarian <DELORES Bee Last Filed: 02/08/25 18:47> Prescriptions: No Action lutein 20 mg tablet 20 mg PO DAILY Rx Instructions: give with meal/snack ginkgo biloba leaf extract 60 mg capsule 60 mg PO BID Rx Instructions: give with meal/snack atorvastatin 20 mg tablet 20 mg PO DAILY Qty: 30 5RF <DELORES Bee Last Filed: 02/08/25 18:47> Follow-up/Referrals: Chin Ward APRN [Primary Care Provider] - <DELORES Bee Last Filed: 02/08/25 18:47>
[2025-02-08 10:04] LABS: D Dimer 14.48 ug/mL (<0.48)
[2025-02-08 10:04] LABS: NT Pro B Type Natriuretic Pept 6990 pg/mL (19.9-100); Troponin I 0.076 ng/mL (0.000-0.034)
[2025-02-08 10:45] LABS: Influenza A QL RT-PCR Negative (Negative); Influenza B QL RT-PCR Negative (Negative); RSV RNA, RT-PCR Negative (Negative); SARS-CoV-2 RNA PCR Negative (Negative)
[2025-02-08] MEDS: HEPARIN SODIUM 5,000 UNITS/ML VIAL 7000 UNITS IV PUSH (11:44)
[2025-02-08] MEDS: HEPARIN SOD/D5W 100 UNITS/ML 25,000 UNITS/250 ML BAG 15 UNITS IV CONT (11:45)
[2025-02-08 12:31] LABS: Troponin I 0.083 ng/mL (0.000-0.034)
== END 2025-02-08 17:45 | disposition short-term general hospital (02) ==
PROVIDERS: Emergency Medicine; Emergency Provider Physician Assistant; PCP Nurse Practitioner
DX: I26.99 Other pulmonary embolism without acute cor pulmonale (principal); R79.89 Other specified abnormal findings of blood chemistry; Z20.822 Contact with and (suspected) exposure to COVID-19; E78.00 Pure hypercholesterolemia, unspecified; M16.12 Unilateral primary osteoarthritis, left hip; Z96.642 Presence of left artificial hip joint; Z79.899 Other long term (current) drug therapy; I44.0 Atrioventricular block, first degree
CPT/HCPCS: 36415; 71046; 71275; 80053; 83880; 84484; 85025; 85380; 85610; 85730; 87637; 93005; 96365; 96366; 99291; J1644; Q9967

== ENCOUNTER 2025-02-13 13:00 | Emergency (ER) | payer MEDICARE, OTHER, SELFPAY ==
--- NOTE | ~2025-02-13 | US_ITS ---
EXAMINATION: US venous doppler [facility] DATE: 02/13/2025 14:20 INDICATION: Left lower extremities swelling, patient on Eliquis TECHNIQUE: Grayscale ultrasound images without and with compression and Doppler ultrasound images of the left lower extremity veins were obtained. COMPARISON: None. FINDINGS: The visualized portions of left common femoral vein, profunda (deep) femoral vein, peroneal veins, po sterior tibial veins, and greater saphenous vein outflow are patent. Noncompressibility and absence of flow within the left femoral and popliteal veins, immediately dista l to the saphenofemoral junction. IMPRESSION: Deep venous thrombosis of the left femoral and popliteal veins. Reviewed, dictated and finalized at location A.
[2025-02-13 13:05] VITALS: BP 152/100; PULSE 75; RESP 16; TEMP 36.6; O2SAT 96
--- OUTSIDE RECORDS SUMMARY | 2025-02-13 13:06 | XMS_ITS | Clinical Summary ---
Author Organization [facility] Address [address] [place] [address] Care Team Providers Care Binder Selector Name Role Phone Chin Ward APRN-REAL [employer]STATE SUBAGENT Primary Care Provider Source Comments [employer] [facility],non-owned Affiliates and Associated Physician Practices is amultiple site organization consisting of ambulatory clinics and hospital sitesin [place], [place], [place] and [place]. This disclosure is being madepursuant to the Care Everywhere program and may not contain all information available regarding this patient. Last updated 18.[employer] Allergies No known active allergies Medications * Be aware that medications may not be up to date on this document. Alwaysverify current medications with the patient. atorvastatin (Lipitor) 20 MG tabletIndicatio ns:Hyperlipidem ia Take 1 (one) tablet by mouth once daily Reasons: High Amount of Fats in the Blood Active apixaban (Eliquis) 5 MG tablet Take 2 (two) tablets by mouth 2 times daily for 6 days, THEN 1 (one) tablet 2 times daily for 30 days. 84 tablet 03/19/20 Active lutein 20 MG capsule Take 1 (one) capsule by mouth once daily 02/12/20 Discontinu ed(Clinica l Decision) Ginkgo Biloba 60 MG Take 180 Doses by mouth once daily For memory 02/12/20 Discontinu ed(Clinica l Decision) Active Problems Problem Noted Date Diagnosed Date GEORGINA (acute kidney injury) 02/09/2025 Dyslipidemia 02/09/2025 Bilateral pulmonary embolism 02/08/2025 Encounters Date Type Department Care Team Description 02/08/2025 6:36 PM CDT - 02/11/2025 3:26 PM CDT Hospital Encounter [facility] 3 Transitional Care Unit [address] [place] [address] Anitra Otoole MD Qazi, Mohsin, MD Marudhai, Suganya, MD Kang, Ayesha, MD Internal Medicine Discharge Disposition: Home or Self Care 02/08/2025 Travel from Last 3 Months Social History Tobacco Use Types Packs/Day Years Used Date Smoking Tobacco: Never Smokeless Tobacco: Never Tobacco Cessation:Counseling Given: Not Answered Alcohol Use Standard Drinks/Week Comments Not Currently 0 (1 standard drink = 0.6 oz pur e alcohol) AUDIT-C Answer Date Recorded Q1: How often do you have a drink containing alc ohol? 2-4 times a month 02/08/2025 Q2: How many drinks containi ng alcohol do you have on a typical day when you are drinking? 3 or 4 02/08/2025 Q3: How often do you have si x or more drinks on one occasion? Less than monthly 02/08/2025 Overall Financial Resource Strain (CARDIA) Answe r Date Recorded How hard is it for you to pa y for the very basics like food, housing, medical care, and heating? Not hard at all 02/08/2025 [facility] Occupat ional Health - Occupational Stress Questionnaire Answer Date Recorded Do you feel stress - tense, restless, nervous, or anxious, or unable to sleep at night because your mind is troubled all the time - these days? Only a little 02/08/2025 Hunger Vital Sign Answer Date Recorded Within the past 12 months, y ou worried that your food would run out before you got the money to buy more. Never true 02/09/20 25 Within the past 12 months, t he food you bought just didn't last and you didn't have money to get more. Never true 02/08/2025 PRAPARE - Transportation Answer Date Re corded In the past 12 months, has l ack of transportation kept you from medical appointments or from getting medications? No 01/19 In the past 12 months, has l ack of transportation kept you from meetings, work, or from getting things needed for daily living? No 02/08/2025 Housing Stability Vital Sign Answer Jayesh e Recorded In the last 12 months, was t here a time when you were not able to pay the mortgage or rent on time? No 02/08/2025 In the past 12 months, how m any times have you moved where you were living? 0 02/08/2025 At any time in the past 12 m [facility], were you homeless or living in a nursing home (including now)? No 02/08/2025 Sex and Gender Information Value Date Recorded Sex Assigned at Not on file Legal Sex Male 12:22 PM CDT Gender Identity Not on file Sexual Orientation Not on file Last Filed Vital Signs Vital Sign Reading Time Taken Comments Blood Pressure 134/68 02/11/2025 12:04 PM CDT Pulse 63 02/11/2025 12:04 PM CDT Temperature 36.6 C (97.9 F) 02/11/2025 12:04 PM CDT Respiratory Rate 13 02/11/2025 12:04 PM CDT Oxygen Saturation 96% 02/11/2025 12:04 PM CDT Inhaled Oxygen Concentration - - Weight 95.7 kg (211 lb) 02/09/2025 12:54 PM CDT Height 182.9 cm (6') 02/09/2025 12:54 PM CDT Body Mass Index 28.62 02/09/2025 12:54 PM CDT Plan of Treatment Health Maintenance Due Date Last Done Comments COLOGUARD (AGES 45-75) - COL ON CA SCREENING 1950 COLON MONITORING 1950 COLONOSCOPY - COLON CA SCREENING 1950 CT COLONOGRAPHY - COLON CA SCREENING 1950 Colorectal Cancer Screening 1950 FIT - COLON CA SCREENING 1950 FLEX SIG - COLON CA SCREENING 1950 MEDICARE AWV 12 MONTHS 1950 HEPATITIS C SCREENING 04/08/1970 DTAP/TDAP/TD VACCINES (1 - Tdap) 1971 PNEUMOCOCCAL VACCINE 50+ (1 of 1 - PCV) 2002 ZOSTER VACCINE (1 of 2) 2002 Respiratory Syncytial Virus (RSV) Vaccine Pt: or over 60 yrs (1 - Risk 60-74 years 1-dose series) 2012 COVID-19 VACCINE ( - 2023-2 5 season) 2024 DEPRESSION SCREENING 09/20/2024 INFLUENZA VACCINE (Season Ended) 2025 HEPATITIS B VACCINE Aged Out No longe r eligible based on patient's age to complete this topic HIB VACCINE Aged Out No longer eligi ble based on patient's age to complete this topic HPV VACCINE Aged Out No longer eligi ble based on patient's age to complete this topic MENINGOCOCCAL (Group B) VACC INE SHARED DECISION-MAKING Aged Out No longer eligibl e based on patient's age to complete this topic MENINGOCOCCAL GROUPS A/C/Y/W VACCINE Aged Out No longer eligible b ased on patient's age to complete this topic Procedures Procedure Name Priority Date/Time Associated Diagnosis Comments BASIC METABOLIC PANEL (CALCIUM TOTAL) AM Draw 02/11/2025 3:06 AM CDT CBC W/O DIFFERENTIAL AM Draw 02/11/2025 3:06 AM CDT PTT Timed 02/10/2025 8:00 AM CDT MAGNESIUM BLOOD Routine 02/10/2025 2:04 AM CDT COMPREHENSIVE METABOLIC PANEL AM Draw 02/10/2025 2:04 AM CDT CBC W/O DIFFERENTIAL AM Draw 02/10/2025 2:04 AM CDT PT-INR Routine 02/10/2025 2:04 AM CDT PTT Timed 02/10/2025 2:04 AM CDT PTT Timed 02/09/2025 6:38 PM CDT IR TRANSLUM THROMBECTOMY VENOUS Routine 02/09/2025 5:00 PM CDT Bilateral pulmonary embolism (HCC) ECHO LIMITED W BUBBLE STUDY STAT 02/09/2025 2:16 PM CDT Bilateral pulmonary embolism (HCC) ECHO COMPLETE W CONTRAST Routine 02/09/2025 8:50 AM CDT Bilateral pulmonary embolism (HCC) PTT Routine 02/09/2025 7:14 AM CDT PT-INR Routine 02/09/2025 7:14 AM CDT CBC W/O DIFFERENTIAL Routine 02/09/2025 7:14 AM CDT BASIC METABOLIC PANEL (CALCIUM TOTAL) Routine 02/09/2025 7:14 AM CDT US RETROPERITONEAL COMPLETE Routine 02/09/2025 7:05 AM CDT GEORGINA (acute kidney injury) PROTEIN URINE QUALITATIVE AUTO Routine 02/09/2025 4:05 AM CDT URINALYSIS REFLEX TO MICROSCOPIC NO CULTURE Routine 02/09/2025 4:05 AM CDT LYTES (NA K CL) URINE RANDOM PANEL Routine 02/09/2025 4:05 AM CDT HEMOGLOBIN A1C Add on 02/08/2025 9:59 PM CDT DIFFERENTIAL MANUAL STAT 02/08/2025 9 :59 PM CDT LACTIC ACID BLOOD STAT 02/08/2025 9:5 9 PM CDT CBC W AUTO DIFFERENTIAL STAT 02/09/20 9:59 PM CDT B-TYPE NATRIURETIC PEPTIDE STAT 02/08/2025 9:59 PM CDT PTT STAT 02/08/2025 9:58 PM CDT TROPONIN-I HIGH SENSITIVE STAT 02/08/2025 9:58 PM CDT PT-INR STAT 02/08/2025 9:58 PM CDT COMPREHENSIVE METABOLIC PANEL STAT 02/08/2025 9:58 PM CDT PTT STAT 02/08/2025 7:26 PM CDT Bilateral pulmonary embolism (HCC) from Last 3 Months Results * CBC W/O DIFFERENTIAL (02/11/2025 3:06 AM CDT) Only the most recent of3 resultswithin the time period is included. WBC 8.6 4.0 - 10.7 x10E9/L 02/11/2025 3:58 AM CDT [facility] RBC Count 4.50 4.30 - 5.80 x10E12/L 02/11/2025 3:58 AM CDT [facility] Hemoglobin 13.3 13.3 - 17.5 g/dL 02/11/2025 3:58 AM CDT [facility] Hematocrit 41.0 38.7 - 51.1 % 02/11/2025 3:58 AM CDT [facility] MCV 91.1 80.0 - 98.0 fL 02/11/2025 3:58 AM CDT [facility] MCH 29.6 26.7 - 33.6 pg 02/11/2025 3:58 AM CDT [facility] MCHC 32.4 31.7 - 36.3 g/dL 02/11/2025 3:58 AM CDT [facility] RDW-CV 14.4 11.3 - 14.8 % 02/11/2025 3:58 AM CDT [facility] Platelet Count 152 150 - 420 x10E9/L 02/11/2025 3:58 AM CDT [facility] MPV 10.2 7.8 - 11.4 fL 02/11/2025 3:58 AM CDT [facility] Blood BLOOD SPECIMEN / Unknown Lab Venipuncture / Unknown 02/11/2025 3:06 AM CDT 02/11/2025 3:49 AM CDT us Lelo Merchant MD LAB - HEMATOLOGY ORDERABLES Angie l Result [facility] [address], [place] [id number] * (ABNORMAL) BASIC METABOLIC PANEL (CALCIUM TOTAL) (02/11/2025 3:06 AM CDT) Only the most recent of2 resultswithin the time period is included. Pathologist [facility] Glucose 94 70 - 99 mg/dL 02/11/2025 4:29 AM CDT [facility] Sodium 142 136 - 145 mmol/L 02/11/2025 4:29 AM CDT [facility] Potassium 3.9 3.5 - 5.1 mmol/L 02/11/2025 4:29 AM CDT [facility] Chloride 108(H) 98 - 107 mmol/L 02/11/2025 4:29 AM CDT [facility] CO2 27 22 - 29 mmol/L 02/11/2025 4:29 AM CDT [facility] Calcium 8.2(L) 8.4 - 10.4 mg/dL 02/11/2025 4:29 AM T [facility] Anion Gap 7 6 - 16 mmol/L 02/11/2025 4:29 AM CDT [facility] BUN 27(H) 7 - 26 mg/dL 02/11/2025 4:29 AM CDT [facility] Creatinine 1.01 0.72 - 1.25 mg/dL 02/11/2025 4:29 AM T [facility] eGFR by CKD-EPI 79(L) >=90 mL/min/1.7 3 m2 02/11/2025 4:29 AM CDT [facility] Blood BLOOD SPECIMEN / Unknown Lab Venipuncture / Unknown 02/11/2025 3:06 AM CDT 02/11/2025 3:49 AM CDT us Lelo Merchant MD LAB - CHEMISTRY ORDERABLES Final Result [facility] [address], [place] [id number] * (ABNORMAL) PTT (02/10/2025 8:00 AM CDT) Only the most recent of6 resultswithin the time period is included. Pathologist [facility] PTT 92.9(H) 23.0 - 38.4 sec 02/10/2025 8:57 AM CDT [facility] Blood BLOOD SPECIMEN / Unknown Lab Venipuncture / Unknown 02/10/2025 8:00 AM CDT 02/10/2025 8:29 AM CDT Narrative [facility] - 02/10/2025 8:57 AM CDT Heparin Therapeutic Range for PTT: 69.0 - 110.0 seconds. us Anitra Otoole MD LAB - COAGULATION ORD ERABLES Final Result Performing Organization Address [facility] Co de Phone Number [facility] [address] [place] [phone] * (ABNORMAL) PT-INR (02/10/2025 2:04 AM CDT) Only the most recent of3 resultswithin the time period is included. PT 16.9(H) 12.1 - 14.8 sec 02/10/2025 3:19 AM CDT [facility] INR 1.4(H) 0.9 - 1.1 02/10/2025 3:19 AM CDT [facility] Blood BLOOD SPECIMEN / Unknown Lab Venipuncture / Unknown 02/10/2025 2:04 AM CDT 02/10/2025 2:53 AM CDT Narrative [facility] - 02/10/2025 3:19 AM CDT Conventional Warfarin Anticoagulant Therapy: INR Reference Range: 2.0-3.0 Intensive Warfarin Anticoagulant Therapy: INR Reference Range: 2.5-3.5 us Anitra Otoole MD LAB - COAGULATION ORD ERABLES Final Result Performing Organization Address [facility] Co de Phone Number [facility] [address], [place] [id number] * (ABNORMAL) COMPREHENSIVE METABOLIC PANEL (02/10/2025 2:04 AM CDT) Only the most recent of2 resultswithin the time period is included. Glucose 103(H) 70 - 99 mg/dL 02/10/2025 3:16 AM CDT [facility] Sodium 141 136 - 145 mmol/L 02/10/2025 3:[facility] Potassium 3.7 3.5 - 5.1 mmol/L 02/10/2025 3:16 AM [facility] Chloride 108(H) 98 - 107 mmol/L 02/10/2025 3:16 AM [facility] CO2 25 22 - 29 mmol/L 02/10/2025 3:16 AM [facility] Calcium 8.2(L) 8.4 - 10.4 mg/dL 02/10/2025 3:16 AM T [facility] Anion Gap 8 6 - 16 mmol/L 02/10/2025 3:16 AM T [facility] BUN 32(H) 7 - 26 mg/dL 02/10/2025 3:16 AM [facility] Creatinine 1.17 0.72 - 1.25 mg/dL 02/10/2025 3:16 AM [facility] Alkaline Phosphatase 88 40 - 150 U/L 02/10/2025 3:16 AM [facility] ALT 15 6 - 57 U/L 02/10/2025 3:16 [facility] AST 23 10 - 48 U/L 02/10/2025 3:16 AM [facility] Protein Total 5.9(L) 6.4 - 8.3 gm/dL 02/10/2025 3:16 AM [facility] Albumin 3.2 3.1 - 4.5 gm/dL 02/10/2025 3:16 AM [facility] Bilirubin Total 0.6 0.2 - 1.2 mg/dL 02/10/2025 3:16 AM [facility] eGFR by CKD-EPI 66(L) >=90 mL/min/1.7 3 m2 02/10/2025 3:16 AM [facility] Blood BLOOD SPECIMEN / Unknown Lab Venipuncture / Unknown 02/10/2025 2:04 AM CDT 02/10/2025 2:53 AM T us Lelo Merchant MD LAB - CHEMISTRY ORDERABLES Final Result [facility] [address] [place] [address] * MAGNESIUM BLOOD (02/10/2025 2:04 AM CDT) Magnesium 1.9 1.6 - 2.6 mg/dL 02/10/2025 3:16 AM CDT [facility] Blood BLOOD SPECIMEN / Unknown Lab Venipuncture / Unknown 02/10/2025 2:04 AM CDT 02/10/2025 2:53 AM CDT Lelo Merchant MD LAB - CHEMISTRY ORDERABLES Final Result [facility] [address] [place] [address] * IR Translum Thrombectomy Venous (02/09/2025 5:00 PM CDT) Anatomical Region Laterality Modality Lower Extremity, Upper Extremity X-Ray Angiography 02/09/2025 5:29 PM CDT Impressions 02/09/2025 5:39 PM CDT Impression: 1.Initial pulmonary artery angiogram demonstrated bilateral lobar and segmental filling defects with main pulmonary artery pressure measuring 63/16 mmHg (mean 33 mmHg). 2.Successful right and left pulmonary thrombectomy using 16 [place] Penumbra CAVD thrombectomy device. 3.Post thrombectomy right and left main pulmonary artery angiograms showing significantly improved flow and perfusion to the bilateral lungs. 4.Post thrombectomy main pulmonary artery pressure measured 36/10 mmHg (mean 23 mmHg). Follow-up recommendations: Monitor right groin for bleeding Keep right leg straight for 2 hours Pursestring in right groin will be removed by IR in 48 hrs Continue therapeutic anticoagulation Please obtain bilateral lower extremity venous duplex if not already done Patient will be followed up in the IR and pulmonary PE clinic in 1 month with repeat echo I, Dr. Chin Sadlaña, was present and performed/supervised the entire procedure. > Interpreting Provider: Chin Saldaña DO on 02/09/2025 5:39 PM Narrative 02/09/2025 5:39 PM CDT History: Patient with bilateral pulmonary embolism for mechanical thrombectomy. Operators: 1.Dr. Chin Saldaña, Attending Physician 2.Dr. Oc Wen, Resident Physician Anesthesia: 1.Local anesthesia - 10 mL of 1% lidocaine 2.Intravenous analgesia - Fentanyl 25 mcg Procedure: 1.Ultrasound-guided access of the right common femoral vein. 2.Selective catheterization of the main pulmonary artery and angiogram. 3.Pressure measurement in the main pulmonary artery. 4.Mechanical thrombectomy of the right pulmonary artery using 16 Penumbra CAVD thrombectomy device 5.Mechanical thrombectomy of the left pulmonary artery using 16 Penumbra CAVD thrombectomy device . 6.Post thrombectomy Pressure measurement in the main pulmonary artery 7.Hemostasis using a purse string suture Procedure in detail: The procedure, risks, and possible complications were explained to the patient in detail, and an informed consent was obtained. The patient was placed supine on the angiographic table. The right groin was prepped and draped in the usual sterile manner. A bag machine operator radiograph of the chest was unremarkable. The patient received intravenous Fentanyl for analgesia. A qualified radiology nurse monitored the patient s vital signs throughout the procedure. Limited ultrasound of the right groin demonstrated a patent and compressible right common femoral vein. A castellon scale image was documented. Local anesthesia was provided with 1% lidocaine. Under real time ultrasound guidance, using a micropuncture needle, the right common femoral vein was accessed. The needle entry was documented. Following a series of exchanges, a 6 [place] short vascular sheath was placed. Using angled pigtail and Bentson wire combination, the main pulmonary artery was catheterized. Through the pigtail catheter, main pulmonary angiogram was performed which demonstrated bilateral lobar and segmental filling defects. The pressure was measured in the main pulmonary artery and was found to be 63/16 mmHg (mean 33 mm Hg). In view of clot burden and high pressures, we decided to perform a thrombectomy. Thrombectomy: A 0.035 Amplatz guidewire was advanced into the pulmonary arteries. After serial dilatation, this was exchanged for a 17 [place] Penumbra sheath. The 16 [place] Penumbra CAVD thrombectomy catheter was advanced through the sheath. The right pulmonary artery was catheterized with the Penumbra thrombectomy catheter. Multiple aspirations were performed. A significant amount of clot was removed. A post aspiration angiogram showed significantly improved clot burden. In a similar fashion, the left pulmonary artery was catheterized with the Penumbra thrombectomy catheter. Multiple aspirations were performed. A significant amount of clot was removed. A post aspiration angiogram showed significantly improved clot burden. Post Thrombectomy: Following thrombectomy the pressure was measured in the main pulmonary artery and was found to be 36/10 mmHg (mean 23 mmHg), significantly reduced as compared to previous thrombectomy angiogram. All catheters and guidewires were removed. Hemostasis was achieved with a pursestring sutures in the groin. The patient tolerated the procedure well and was transferred to the ICU in stable condition. There were no immediate complications associated with the procedure. Procedure Note Chin Saldaña MD - 02/09/2025 History: Patient with bilateral pulmonary embolism for mechanical thrombectomy. Operators: 1.Dr. Chin Saldaña, Attending Physician 2.Dr. Oc Wen, Resident Physician Anesthesia: 1.Local anesthesia - 10 mL of 1% lidocaine 2.Intravenous analgesia - Fentanyl 25 mcg Procedure: 1.Ultrasound-guided access of the right common femoral vein. 2.Selective catheterization of the main pulmonary artery and angiogram. 3.Pressure measurement in the main pulmonary artery. 4.Mechanical thrombectomy of the right pulmonary artery using 16Penumbra CAVD thrombectomy device 5.Mechanical thrombectomy of the left pulmonary artery using 16 Penumbra CAVD thrombectomy device . 6.Post thrombectomy Pressure measurement in the main pulmonary artery 7.Hemostasis using a purse string suture Procedure in detail: The procedure, risks, and possible complications were explained to the patient in detail, and an informed consent was obtained. The patient was placed supine on the angiographic table. The right groin was prepped and draped in the usual sterile manner. A bag machine operator radiograph of the chest was unremarkable. The patient received intravenous Fentanyl for analgesia. A qualified radiology nurse monitored the patient s vital signs throughout the procedure. Limited ultrasound of the right groin demonstrated a patent and compressible right common femoral vein. A castellon scale image wasdocumented. Local anesthesia was provided with 1% lidocaine. Under real timeultrasound guidance, using a micropuncture needle, the right common femoral veinwas accessed. The needle entry was documented. Following a series ofexchanges, a 6 [place] short vascular sheath was placed. Using angled pigtail and Bentson wire combination, the main pulmonary artery was catheterized. Through the pigtail catheter, main pulmonary angiogram was performed which demonstrated bilateral lobar and segmental filling defects. The pressure was measured in the main pulmonary arteryand was found to be 63/16 mmHg (mean 33 mm Hg). In view of clot burden and high pressures, we decided to perform a thrombectomy. Thrombectomy: A 0.035 Amplatz guidewire was advanced into the pulmonary arteries.After serial dilatation, this was exchanged for a 17 [place] Penumbra sheath.The 16 [place] Penumbra CAVD thrombectomy catheter was advanced through the sheath. The right pulmonary artery was catheterized with the Penumbrathrombectomy catheter. Multiple aspirations were performed. A significant amount ofclot was removed. A post aspiration angiogram showed significantly improvedclot burden. In a similar fashion, the left pulmonary artery was catheterized withthe Penumbra thrombectomy catheter. Multiple aspirations were performed. A significant amount of clot was removed. A post aspiration angiogramshowed significantly improved clot burden. Post Thrombectomy: Following thrombectomy the pressure was measured in the main pulmonary artery and was found to be 36/10 mmHg (mean 23 mmHg), significantlyreduced as compared to previous thrombectomy angiogram. All catheters and guidewires were removed. Hemostasis was achieved witha pursestring sutures in the groin. The patient tolerated the procedurewell and was transferred to the ICU in stable condition. There were noimmediate complications associated with the procedure. Impression: 1.Initial pulmonary artery angiogram demonstrated bilateral lobar and segmental filling defects with main pulmonary artery pressure measuring 63/16 mmHg (mean 33 mmHg). 2.Successful right and left pulmonary thrombectomy using 16 FrenchPenumbra CAVD thrombectomy device. 3.Post thrombectomy right and left main pulmonary artery angiogramsshowing significantly improved flow and perfusion to the bilateral lungs. 4.Post thrombectomy main pulmonary artery pressure measured 36/10 mmHg (mean 23 mmHg). Follow-up recommendations: Monitor right groin for bleeding Keep right leg straight for 2 hours Pursestring in right groin will be removed by IR in 48 hrs Continue therapeutic anticoagulation Please obtain bilateral lower extremity venous duplex if not alreadydone Patient will be followed up in the IR and pulmonary PE clinic in 1 month with repeat echo I, Dr. Chin Saldaña, was present and performed/supervised the entire procedure. > Interpreting Provider: Chin Saldaña DO on 02/09/2025 5:39 PM us Lelo Merchant MD IR ORDERABLES Final Result * ECHO LIMITED W BUBBLE STUDY (02/09/2025 2:16 PM CDT) Only the most recent of2 resultswithin the time period is included. Myocardial strain charge 2 unitless [facility] CV FUJI PACS Anatomical Region Laterality Modality Ultrasound 02/09/2025 1:49 PM CDT Narrative 02/09/2025 2:49 PM CDT Summary * Intact interatrial septum visualized by 2D imaging. There is bowing of the intra atrial septum into the left atrium suggesting increased right atrial pressure. With agitated saline injection, bubbles are noted in the left atrium and left ventricle. This suggests presence of PFO. Patient Info Name: Sancho Morales Age: 74 years : 1950 Gender: Male Ht: 72 in Wt: 211 lb BSA: 2.22 m2 BP: 145 / 95 mmHg Exam Date: 02/09/2025 1:49 PM Patient Status: I/P Study Site: [facility] Primary Location: [facility] EStudy Info Exam Type: ECHO LIMITED W BUBBLE STUDY Indications I26.99 - Bilateral pulmonary embolism (HCC) Procedure(s) * A limited 2D transthoracic echocardiogram was performed with a Bubble Study. Contrast/Agitated Saline Contrast / Saline: Agitated Saline Amount: --- ml Staff Referring Physician: Lelo Merchant Ordering Provider: Lelo Merchant Attending Physician: Lelo Merchant [employer] Supervisor: Sade Mir Atrial Septum Intact interatrial septum visualized by 2D imaging. There is bowing of the intra atrial septum into the left atrium suggesting increased right atrial pressure. With agitated saline injection, bubbles are noted in the left atrium and left ventricle. This suggests presence of PFO. Report Signatures Finalized by Becka Davidson on 02/09/2025 02:49 PM Procedure Note Becka Davidson, DO - 02/09/2025 Summary * Intact interatrial septum visualized by 2D imaging. There is bowingof the intra atrial septum into the left atrium suggesting increased rightatrial pressure. With agitated saline injection, bubbles are noted in the left atrium and left ventricle. This suggests presence of PFO. Patient Info Name: Sancho Morales Age: 74 years : 1950 Gender: Male Ht: 72 in Wt: 211 lb BSA: 2.22 m2 BP: 145 / 95 mmHg Exam Date: 02/09/2025 1:49 PM Patient Status: I/P Study Site: [facility] Primary Location: [facility] EStudy Info Exam Type: ECHO LIMITED W BUBBLE STUDY Indications I26.99 - Bilateral pulmonary embolism (HCC) Procedure(s) * A limited 2D transthoracic echocardiogram was performed with aBubble Study. Contrast/Agitated Saline Contrast / Saline: Agitated Saline Amount: --- ml Staff Referring Physician: Lelo Merchant Ordering Provider: Lelo Merchant Attending Physician: Lelo Merchant [employer] Supervisor: Sade Mir Atrial Septum Intact interatrial septum visualized by 2D imaging. There is bowing ofthe intra atrial septum into the left atrium suggesting increased rightatrial pressure. With agitated saline injection, bubbles are noted in the left atrium and left ventricle. This suggests presence of PFO. Report Signatures Finalized by Becka Davidson on 02/09/2025 02:49 PM us Lelo Merchant MD ECHO CUPID Final Result * US Retroperitoneal Complete (02/09/2025 7:05 AM CDT) Anatomical Region Laterality Modality Abdomen Ultrasound 02/09/2025 9:04 AM CDT Impressions 02/09/2025 9:10 AM CDT IMPRESSION: 1. Hypoechoic cystic focus seen in the left kidney with some minimal internal echoes most likely a cyst. 2. Echogenic focus in left kidney likely 5 mm nonobstructive stone. 3. No hydronephrosis seen. Edited by Kenisha Delgado on 02/09/2025 9:09 AM > Interpreting Provider: Jono Hope MD on 02/09/2025 9:10 AM Narrative 02/09/2025 9:10 AM CDT PROCEDURE: US RETROPERITONEAL COMPLETE DATE/TIME OF EXAM: 02/09/2025 7:28 AM CLINICAL INFORMATION: None relevant/not provided if blank. Indication: N17.9: Acute kidney failure, unspecified Additional History: COMPARISON: None. TECHNIQUE: Real-time ultrasound of the kidneys and bladder with DICOM image capture performed by lead cytogenetic technologist. FINDINGS: Right kidney measures 10.6 x 4.9 x 5.5 cm. Left kidney measures 10.8 x 5.6 x 4.8 cm. There may be a small stone in the mid region of the left kidney measuring up to 5 mm. Cysts are seen in the left inferior renal pole and right superior renal pole measuring up to 1.3 cm. Renal echogenicity appears normal. No hydronephrosis is seen. Inferior pole of the left kidney is not well evaluated. Limited evaluation of the bladder is unremarkable. Procedure Note Jono Hope MD - 02/09/2025 PROCEDURE: US RETROPERITONEAL COMPLETE DATE/TIME OF EXAM: 02/09/2025 7:28 AM CLINICAL INFORMATION: None relevant/not provided if blank. Indication: N17.9: Acute kidney failure, unspecified Additional History: COMPARISON: None. TECHNIQUE: Real-time ultrasound of the kidneys and bladder with DICOMimage capture performed by lead cytogenetic technologist. FINDINGS: Right kidney measures 10.6 x 4.9 x 5.5 cm. Left kidney measures 10.8 x 5.6 x 4.8 cm. There may be a small stone inthe mid region of the left kidney measuring up to 5 mm. Cysts are seen inthe left inferior renal pole and right superior renal pole measuring up to1.3 cm. Renal echogenicity appears normal. No hydronephrosis is seen.Inferior pole of the left kidney is not well evaluated. Limited evaluation of the bladder is unremarkable. IMPRESSION: 1. Hypoechoic cystic focus seen in the left kidney with some minimal internal echoes most likely a cyst. 2. Echogenic focus in left kidney likely 5 mm nonobstructive stone. 3. No hydronephrosis seen. Edited by Kenisha Delgado on 02/09/2025 9:09 AM > Interpreting Provider: Jono Hope MD on 02/09/2025 9:10 AM us Jimmy Shah MD ORDERABLES Final Result * (ABNORMAL) URINALYSIS REFLEX TO MICROSCOPIC NO CULTURE (02/09/2025 4:05 AM T) Color UA Yellow Yellow, Straw 02/09/2025 5:27 AM [facility] Clarity UA Clear Clear 02/09/2025 5:27 AM [facility] Glucose UA Normal Normal 02/09/2025 5:27 AM [facility] Bilirubin UA Negative Negative 02/09/2025 5:27 AM [facility] Ketone UA 1+(A) Negative 02/09/2025 5:27 AM [facility] Specific Homeworth UA 1.047(H) 1.005 - 1.030 02/09/2025 5:27 AM [facility] Blood UA 2+(A) Negative 02/09/2025 5:27 AM [facility] pH UA 6.0 5.0 - 8.0 pH 02/09/2025 5:27 AM [facility] Protein UA 1+(A) Negative 02/09/2025 5:27 AM [facility] Urobilinogen UA Normal Normal mg/dL 025 5:27 AM [facility] Nitrite UA Negative Negative 02/09/2025 5:27 AM [facility] Leukocyte UA Negative Negative 02/09/2025 5:27 AM [facility] RBC UA 21-50(A) 0 - 5 # /hpf 02/09/2025 5:27 AM [facility] WBC UA 0-5 0 - 5 # /hpf 02/09/2025 5:27 AM [facility] Bacteria UA None Seen None Seen 02/09/2025 5:27 AM [facility] Squamous Epithelial Cells None Seen 0 - 5 /hpf 02/09/2025 5:27 AM [facility] Mucus UA 3+ /LPF 02/09/2025 5:27 AM [facility] Urine URINE SPECIMEN OBTAINED BY CLEAN CATCH PROCEDURE / Unknown Collection / Unknown 02/09/2025 4:05 AM CDT 02/09/2025 5:09 AM CDT Narrative [facility] - 02/09/2025 5:27 AM CDT Jimmy Shah MD LAB - URINALYSIS ORDERABLES Angie l Result [facility] [address] [place] [phone] * (ABNORMAL) PROTEIN URINE QUALITATIVE AUTO (02/09/2025 4:05 AM CDT) Protein UA 1+(A) Negative 02/09/2025 5:21 AM CDT [facility] Urine URINE / Unknown Collection / Unknown 02/09/2025 4:05 AM CDT 02/09/2025 5:09 AM CDT Narrative [facility] - 02/09/2025 5:21 AM CDT Jimmy Shah MD LAB - URINALYSIS ORDERABLES Angie l Result Performing Organization Address City/[facility]/ZIP Co de Phone Number [facility] [address] [place], [place] [phone] * LYTES (NA K CL) URINE RANDOM PANEL (02/09/2025 4:05 AM CDT) Sodium Urine 133 mmol/L 02/09/2025 5:40 AM CDT [facility] Potassium Urine 51.0 mmol/L 02/09/2025 5:40 AM CDT [facility] Chloride Urine 127.0 mmol/L 02/09/2025 5:40 AM CDT [facility] Urine URINE SPECIMEN OBTAINED BY CLEAN CATCH PROCEDURE / Unknown Collection / Unknown 02/09/2025 4:05 AM CDT 02/09/2025 5:10 AM CDT Jimmy Shah MD LAB - URINE CHEMISTRY ORDERABLES Final Result Performing Organization Address City/[facility]/ZIP Co de Phone Number [facility] [address] [place] [phone] * (ABNORMAL) HEMOGLOBIN A1C (02/08/2025 9:59 PM CDT) Pathologist [facility] Hemoglobin A1c 5.7(H) <5.7 % 02/08/2025 11:48 PM CDT [facility] Estimated Average Glucose 117 mg/dL 02/08/2025 11:48 PM CDT [facility] Blood BLOOD SPECIMEN / Unknown Lab Venipuncture / Unknown 02/08/2025 9:59 PM CDT 02/08/2025 10:08 PM CDT [facility] - 02/08/2025 11:48 PM CDT HbA1c Interpretation: Normal: < 5.7% Pre-diabetes: 5.7-6.4% Diabetes: Equal to or greater than 6.5% Test results diagnostic of diabetes should be repeated for confirmation. Treatment target values recommended by ADA and other clinical organizations should be used to evaluate metabolic control in patients. This test should not replace glucose testing for patients with Type 1 diabetes, pediatric patients, or women. Falsely low HbA1c results may be observed in patients with clinical conditions that shorten erythrocyte life span or decrease mean erythrocyte age such as the presence of unstable hemoglobin variants, elevated hemoglobin F level or other causes of hemolytic anemia. HbA1c may not accurately reflect glycemic control when clinical conditions that affect erythrocyte survival are present. Severe Iron deficiency anemia may yield falsely high results. Hemoglobin A1c assay should not be used to diagnose or monitor diabetes in patients with malignancy, recent blood transfusion, chronic kidney or liver disease. This method may yield falsely low results when hemoglobin (HbF) exceeds 5% in the specimen. The Foley Alinity assay for the measurement of HbA1c is a National Glycohemoglobin Standardization Program (NGSP) certified method. Jimmy Shah MD LAB - CHEMISTRY ORDERABLES Final Result [facility] [address] [place] [address] * (ABNORMAL) DIFFERENTIAL MANUAL (02/08/2025 9:59 PM CDT) Pathologist [facility] Neutrophil % 61 41 - 74 % 02/08/2025 11:08 PM CDT [facility] Lymphocyte % 29 17 - 47 % 02/08/2025 11:08 PM CDT [facility] Monocyte % 10 3 - 11 % 02/08/2025 11:08 PM CDT [facility] Neutrophil Absolute 9.27(H) 1.60 - 7.50 x10E9/L 02/08/2025 11:08 PM CDT [facility] Lymphocyte Absolute 4.41(H) 1.00 - 4.40 x10E9/L 02/08/2025 11:08 PM CDT [facility] Monocyte Absolute 1.52(H) 0.15 - 1.00 x10E9/L 02/08/2025 11:08 PM CDT [facility] RBC Morphology NORMAL 02/08/2025 11:08 PM CDT [facility] Comment See Comment 02/08/2025 11:08 PM CDT [facility] Comment:Slide treated with a lbumin. Blood BLOOD SPECIMEN / Unknown Lab Venipuncture / Unknown 02/08/2025 9:59 PM CDT 02/08/2025 10:08 PM CDT Anitra Otoole MD LAB - HEMATOLOGY DERRICK RODRIGUEZ Final Result [facility] [address] [place] [address] * (ABNORMAL) CBC W AUTO DIFFERENTIAL (02/08/2025 9:59 PM CDT) WBC 15.2(H) 4.0 - 10.7 x10E9/L 02/08/2025 11:08 PM CDT [facility] RBC Count 5.25 4.30 - 5.80 x10E12/L 02/08/2025 11:08 PM CDT [facility] Hemoglobin 15.3 13.3 - 17.5 g/dL 02/08/2025 11:08 PM CDT [facility] Hematocrit 47.2 38.7 - 51.1 % 02/08/2025 11:08 PM CDT [facility] MCV 89.9 80.0 - 98.0 fL 02/08/2025 11:08 PM CDT [facility] MCH 29.1 26.7 - 33.6 pg 02/08/2025 11:08 PM CDT [facility] MCHC 32.4 31.7 - 36.3 g/dL 02/08/2025 11:08 PM CDT [facility] RDW-CV 14.3 11.3 - 14.8 % 02/08/2025 11:08 PM CDT [facility] Platelet Count 163 150 - 420 x10E9/L 02/08/2025 11:08 PM CDT [facility] MPV 10.2 7.8 - 11.4 fL 02/08/2025 11:08 PM CDT [facility] Blood BLOOD SPECIMEN / Unknown Lab Venipuncture / Unknown 02/08/2025 9:59 PM CDT 02/08/2025 10:08 PM CDT us Anitra Otoole MD LAB - HEMATOLOGY ORDE RABLES Final Result Performing Organization Address [facility] Co de Phone Number [facility] [address] [place] [phone] * (ABNORMAL) B-TYPE NATRIURETIC PEPTIDE (02/08/2025 9:59 PM CDT) Pathologist [facility] BNP 1,281(H) <=100 pg/mL 02/08/2025 10:32 PM CDT [facility] Blood BLOOD SPECIMEN / Unknown Lab Venipuncture / Unknown 02/08/2025 9:59 PM CDT 02/08/2025 10:08 PM CDT Narrative [facility] - 02/08/2025 10:32 PM CDT A cutoff of 100 pg/mL has been demonstrated to provide the maximal combination of sensitivity, specificity, and negative predictive value for contributing to the diagnosis of congestive heart failure (CHF) only. A B-Type Natriuretic Peptide (BNP) value greater than or equal to 100 pg/mL is consistent with a diagnosis of CHF in the appropriate clinical setting. False positive results are more common in females greater than 75 years of age. Blood concentrations of natriuretic peptides may also be elevated in patients with myocardial infarction and in patients who are candidates for or are undergoing renal dialysis. us Anitra Otoole MD LAB - CHEMISTRY ORDER MARGUERITE Final Result Performing Organization Address City/[facility]/ZIP Co de Phone Number [facility] [address] [place] [address] * LACTIC ACID BLOOD (02/08/2025 9:59 PM CDT) Lactic Acid 1.742 <=2 mmol/L 02/08/2025 10:31 PM CDT [facility] Blood BLOOD SPECIMEN / Unknown Lab Venipuncture / Unknown 02/08/2025 9:59 PM CDT 02/08/2025 10:07 PM CDT us Anitra Otoole MD LAB - CHEMISTRY ORDER MARGUERITE Final Result [facility] [address] [place] [address] * (ABNORMAL) TROPONIN-I HIGH SENSITIVE (02/08/2025 9:58 PM CDT) Troponin I High Sensitive 93(H) <=35 ng/L 02/08/2025 10:34 PM CDT [facility] Blood BLOOD SPECIMEN / Unknown Lab Venipuncture / Unknown 02/08/2025 9:58 PM CDT 02/08/2025 10:08 PM CDT us Anitra Otoole MD LAB - CHEMISTRY ORDER MARGUERITE Final Result [facility] [address] [place] [address] from Last 3 Months Insurance MEDICARE [facility] Advance Directives * Full Code (Latest Code Status on File) Date Activated Date Inactivated Comments 02/08/2025 9:34 PM 02/11/2025 4:36 PM Care Teams Binder Selector Relationship Specialty Start Date End Date Chin Ward, [employer] [address] [place] [address] PCP - General Nurse Practitioner 02/08/25
--- OUTSIDE RECORDS SUMMARY | 2025-02-13 14:49 | XMS_ITS | Clinical Summary ---
Author Organization [facility] Address [address] [facility] [place] [address] Care Team Providers Care Supervisory Clerk Name Role Phone Chin Ward APRN-MORTGAGE SALES MANAGER Primary Care Provider Source Comments [facility],non-owned Affiliates and Associated Physician Practices is amultiple site organization consisting of ambulatory clinics and hospital sitesin [place], [place], [place] and [place]. This disclosure is being madepursuant to the Care Everywhere program and may not contain all information available regarding this patient. Last updated 18.DaisyBill Allergies No known active allergies Medications * [...] - 02/11/2025 3:26 PM CDT Hospital Encounter [facility] 3 Transitional Care Unit [address] [place] [address] Anitra Otoole MD Qazi, Mohsin, MD Marudhai, [...] and heating? Not hard at all 02/08/2025 [facility] - Occupational Stress [...] any time in the past 12 m [facility], were you homeless or living in a group home (including now)? No 02/08/2025 Sex and [...] - 10.7 x10E9/L 02/11/2025 3:58 AM CDT [facility] RBC Count 4.50 4.30 - 5.80 x10E12/L 02/11/2025 3:58 AM CDT [facility] Hemoglobin 13.3 13.3 - 17.5 g/dL 02/11/2025 3:58 AM CDT [facility] Hematocrit 41.0 38.7 - 51.1 % 02/11/2025 3:58 AM CDT [facility] MCV 91.1 80.0 - 98.0 fL 02/11/2025 3:58 AM CDT [facility] MCH 29.6 26.7 - 33.6 pg 02/11/2025 3:58 AM CDT [facility] MCHC 32.4 31.7 - 36.3 g/dL 02/11/2025 3:58 AM CDT [facility] RDW-CV 14.4 11.3 - 14.8 % 02/11/2025 3:58 AM CDT [facility] Platelet Count 152 150 - 420 x10E9/L 02/11/2025 3:58 AM CDT [facility] MPV 10.2 7.8 - 11.4 fL 02/11/2025 3:58 AM CDT [facility] Blood BLOOD SPECIMEN / Unknown Lab Venipuncture / Unknown 02/11/2025 3:06 AM CDT 02/11/2025 3:49 AM CDT us Lelo Merchant MD LAB - HEMATOLOGY ORDERABLES Angie l Result [facility] [address], [place] [phone] * (ABNORMAL) BASIC METABOLIC PANEL (CALCIUM TOTAL) (02/11/2025 3:06 AM CDT) Only the most recent of2 resultswithin the time period is included. Pathologist [facility] [place] Glucose 94 70 - 99 mg/dL 02/11/2025 4:29 AM CDT [facility] Sodium 142 136 - 145 mmol/L 02/11/2025 4:29 AM CDT [facility] Potassium 3.9 3.5 - 5.1 mmol/L 02/11/2025 4:29 AM CDT [facility] Chloride 108(H) 98 - 107 mmol/L 02/11/2025 4:29 AM CDT [facility] CO2 27 22 - 29 mmol/L 02/11/2025 4:29 AM CDT [facility] Calcium 8.2(L) 8.4 - 10.4 mg/dL 02/11/2025 4:29 AM T [facility] Anion Gap 7 6 - 16 mmol/L 02/11/2025 4:29 AM CDT [facility] BUN 27(H) 7 - 26 mg/dL 02/11/2025 4:29 AM CDT [facility] Creatinine 1.01 0.72 - 1.25 mg/dL 02/11/2025 4:29 AM T [facility] eGFR by CKD-EPI 79(L) >=90 mL/min/1.7 3 m2 02/11/2025 4:29 AM CDT [facility] Blood BLOOD SPECIMEN / Unknown Lab Venipuncture / Unknown 02/11/2025 3:06 AM CDT 02/11/2025 3:49 AM CDT us eLlo Merchant MD LAB - CHEMISTRY ORDERABLES Final Result [facility] [address], [place] [phone] * (ABNORMAL) PTT (02/10/2025 8:00 AM CDT) Only the most recent of6 resultswithin the time period is included. Pathologist [facility] PTT 92.9(H) 23.0 - 38.4 sec 02/10/2025 8:57 AM CDT [facility] Blood BLOOD SPECIMEN / Unknown Lab Venipuncture / Unknown 02/10/2025 8:00 AM CDT 02/10/2025 8:29 AM CDT Narrative [facility] - 02/10/2025 8:57 AM CDT Heparin Therapeutic Range for PTT: 69.0 - 110.0 seconds. us Anitra Otoole MD LAB - COAGULATION ORD ERABLES Final Result Performing Organization Address [facility] Co de Phone Number [facility] [address] [place] [phone] * (ABNORMAL) PT-INR (02/10/2025 2:04 AM CDT) Only the most recent of3 resultswithin the time period is included. PT 16.9(H) 12.1 - 14.8 sec 02/10/2025 3:19 AM CDT [facility] INR 1.4(H) 0.9 - 1.1 02/10/2025 3:19 AM CDT [facility] Blood BLOOD SPECIMEN / Unknown Lab Venipuncture / Unknown 02/10/2025 2:04 AM CDT 02/10/2025 2:53 AM CDT Narrative [facility] - 02/10/2025 3:19 AM CDT Conventional Warfarin Anticoagulant Therapy: INR Reference Range: 2.0-3.0 Intensive Warfarin Anticoagulant Therapy: INR Reference Range: 2.5-3.5 us Anitra Otoole MD LAB - COAGULATION ORD ERABLES Final Result Performing Organization Address [facility] Co de Phone Number [facility] [address], [place] [phone] * (ABNORMAL) COMPREHENSIVE METABOLIC PANEL (02/10/2025 2:04 AM CDT) Only the most recent of2 resultswithin the time period is included. Glucose 103(H) 70 - 99 mg/dL 02/10/2025 3:16 AM CDT [facility] Sodium 141 136 - 145 mmol/L [facility] Potassium 3.7 3.5 - 5.1 mmol/L 02/10/2025 3:16 AM [facility] Chloride 108(H) 98 - 107 mmol/L 02/10/2025 3:16 AM [facility] CO2 25 22 - 29 mmol/L 02/10/2025 3:16 AM [facility] Calcium 8.2(L) 8.4 - 10.4 mg/dL 02/10/2025 3:16 AM T [facility] Anion Gap 8 6 - 16 mmol/L 02/10/2025 3:16 AM T [facility] BUN 32(H) 7 - 26 mg/dL 02/10/2025 3:16 AM [facility] Creatinine 1.17 0.72 - 1.25 mg/dL 02/10/2025 3:16 AM [facility] Alkaline Phosphatase 88 40 - 150 U/L 02/10/2025 3:16 AM [facility] ALT 15 6 - 57 U/L 02/10/2025 [facility] AST 23 10 - 48 U/L 02/10/2025 3:16 AM [facility] Protein Total 5.9(L) 6.4 - 8.3 gm/dL 02/10/2025 3:16 AM [facility] Albumin 3.2 3.1 - 4.5 gm/dL 02/10/2025 3:16 AM [facility] Bilirubin Total 0.6 0.2 - 1.2 mg/dL 02/10/2025 3:16 AM [facility] eGFR by CKD-EPI 66(L) >=90 mL/min/1.7 3 m2 02/10/2025 3:16 AM [facility] Blood BLOOD SPECIMEN / Unknown Lab Venipuncture / Unknown 02/10/2025 2:04 AM CDT 02/10/2025 2:53 AM T us Lelo Merchant MD LAB - CHEMISTRY ORDERABLES Final Result [facility] [address] [place] [address] * MAGNESIUM BLOOD (02/10/2025 2:04 AM CDT) Magnesium 1.9 1.6 - 2.6 mg/dL 02/10/2025 3:16 AM CDT [facility] Blood BLOOD SPECIMEN / Unknown Lab Venipuncture / Unknown 02/10/2025 2:04 AM CDT 02/10/2025 2:53 AM CDT Lelo Merchant MD LAB - CHEMISTRY ORDERABLES Final Result [facility] [address] [place] [address] * IR Translum Thrombectomy Venous (02/09/2025 5:00 PM CDT) Anatomical Region Laterality Modality Lower Extremity, Upper Extremity X-Ray Angiography 02/09/2025 5:29 PM CDT Impressions 02/09/2025 5:39 PM CDT Impression: 1.Initial pulmonary artery angiogram demonstrated bilateral lobar and segmental filling defects with main pulmonary artery pressure measuring 63/16 mmHg (mean 33 mmHg). 2.Successful right and left pulmonary thrombectomy using 16 [place]an Penumbra CAVD thrombectomy device. 3.Post thrombectomy right [...] draped in the usual sterile manner. A manager residential radiograph of the chest was unremarkable. The [...] Following a series of exchanges, a 6 Zimbabwean short vascular sheath was placed. Using angled [...] dilatation, this was exchanged for a 17 [place]an Penumbra sheath. The 16 [place]an Penumbra CAVD thrombectomy catheter was advanced through [...] draped in the usual sterile manner. A manager residential radiograph of the chest was unremarkable. The [...] documented. Following a series ofexchanges, a 6 [place]an short vascular sheath was placed. Using angled [...] dilatation, this was exchanged for a 17 [place]an Penumbra sheath.The 16 [place]an Penumbra CAVD thrombectomy catheter was advanced through [...] 1:49 PM Patient Status: I/P Study Site: [facility] Primary Location: [facility] EStudy Info Exam Type: ECHO LIMITED W BUBBLE STUDY Indications I26.99 - Bilateral pulmonary embolism (HCC) Procedure(s) * A limited 2D transthoracic echocardiogram was performed with a Bubble Study. Contrast/Agitated Saline Contrast / Saline: Agitated Saline Amount: --- ml Staff Referring Physician: Lelo Merchant Ordering Provider: Lelo Merchant Attending Physician: Lelo Merchant Specification Writer: Sade Mir Atrial Septum Intact interatrial septum [...] 1:49 PM Patient Status: I/P Study Site: [facility] Primary Location: [facility] EStudy Info Exam Type: ECHO LIMITED W BUBBLE STUDY Indications I26.99 - Bilateral pulmonary embolism (HCC) Procedure(s) * A limited 2D transthoracic echocardiogram was performed with aBubble Study. Contrast/Agitated Saline Contrast / Saline: Agitated Saline Amount: --- ml Staff Referring Physician: Lelo Merchant Ordering Provider: Lelo Merchant Attending Physician: Lelo Merchant Specification Writer: Sade Mir Atrial Septum Intact interatrial septum [...] bladder with DICOM image capture performed by 3d technologist. FINDINGS: Right kidney measures 10.6 x [...] and bladder with DICOMimage capture performed by 3d technologist. FINDINGS: Right kidney measures 10.6 x [...] UA Yellow Yellow, Straw 02/09/2025 5:27 AM [facility] Clarity UA Clear Clear 02/09/2025 5:27 AM [facility] Glucose UA Normal Normal 02/09/2025 5:27 AM [facility] Bilirubin UA Negative Negative 02/09/2025 5:27 AM [facility] Ketone UA 1+(A) Negative 02/09/2025 5:27 AM [facility] Specific Cascade UA 1.047(H) 1.005 - 1.030 02/09/2025 5:27 AM [facility] Blood UA 2+(A) Negative 02/09/2025 5:27 AM [facility] pH UA 6.0 5.0 - 8.0 pH 02/09/2025 5:27 AM [facility] Protein UA 1+(A) Negative 02/09/2025 5:27 AM [facility] Urobilinogen UA Normal Normal mg/dL 025 5:27 AM [facility] Nitrite UA Negative Negative 02/09/2025 5:27 AM [facility] Leukocyte UA Negative Negative 02/09/2025 5:27 AM [facility] RBC UA 21-50(A) 0 - 5 # /hpf 02/09/2025 5:27 AM [facility] WBC UA 0-5 0 - 5 # /hpf 02/09/2025 5:27 AM [facility] Bacteria UA None Seen None Seen 02/09/2025 5:27 AM [facility] Squamous Epithelial Cells None Seen 0 - 5 /hpf 02/09/2025 5:27 AM [facility] Mucus UA 3+ /LPF 02/09/2025 5:27 AM [facility] Urine URINE SPECIMEN OBTAINED BY CLEAN CATCH PROCEDURE / Unknown Collection / Unknown 02/09/2025 4:05 AM CDT 02/09/2025 5:09 AM CDT Narrative [facility] - 02/09/2025 5:27 AM CDT Jimmy Shah MD LAB - URINALYSIS ORDERABLES Angie l Result [facility] [address] [place] [phone] * (ABNORMAL) PROTEIN URINE QUALITATIVE AUTO (02/09/2025 4:05 AM CDT) Protein UA 1+(A) Negative 02/09/2025 5:21 AM CDT [facility] Urine URINE / Unknown Collection / Unknown 02/09/2025 4:05 AM CDT 02/09/2025 5:09 AM CDT Narrative [facility] - 02/09/2025 5:21 AM CDT Jimmy Shah MD LAB - URINALYSIS ORDERABLES Angie l Result Performing Organization Address City/[facility]/ZIP Co de Phone Number [facility] [address] [place], [place] [phone] * LYTES (NA K CL) URINE RANDOM PANEL (02/09/2025 4:05 AM CDT) Sodium Urine 133 mmol/L 02/09/2025 5:40 AM CDT [facility] Potassium Urine 51.0 mmol/L 02/09/2025 5:40 AM CDT [facility] Chloride Urine 127.0 mmol/L 02/09/2025 5:40 AM CDT [facility] Urine URINE SPECIMEN OBTAINED BY CLEAN CATCH PROCEDURE / Unknown Collection / Unknown 02/09/2025 4:05 AM CDT 02/09/2025 5:10 AM CDT Jimmy Shah MD LAB - URINE CHEMISTRY ORDERABLES Final Result Performing Organization Address City/[facility]/ZIP Co de Phone Number [facility] [address] [place] [phone] * (ABNORMAL) HEMOGLOBIN A1C (02/08/2025 9:59 PM CDT) Pathologist [facility] Hemoglobin A1c 5.7(H) <5.7 % 02/08/2025 11:48 PM CDT [facility] Estimated Average Glucose 117 mg/dL 02/08/2025 11:48 PM CDT [facility] Blood BLOOD SPECIMEN / Unknown Lab Venipuncture / Unknown 02/08/2025 9:59 PM CDT 02/08/2025 10:08 PM CDT [facility] - 02/08/2025 11:48 PM CDT [...] MD LAB - CHEMISTRY ORDERABLES Final Result [facility] [address] [place] [address] * (ABNORMAL) DIFFERENTIAL MANUAL (02/08/2025 9:59 PM CDT) Pathologist [facility] Neutrophil % 61 41 - 74 % 02/08/2025 11:08 PM CDT [facility] Lymphocyte % 29 17 - 47 % 02/08/2025 11:08 PM CDT [facility] Monocyte % 10 3 - 11 % 02/08/2025 11:08 PM CDT [facility] Neutrophil Absolute 9.27(H) 1.60 - 7.50 x10E9/L 02/08/2025 11:08 PM CDT [facility] Lymphocyte Absolute 4.41(H) 1.00 - 4.40 x10E9/L 02/08/2025 11:08 PM CDT [facility] Monocyte Absolute 1.52(H) 0.15 - 1.00 x10E9/L 02/08/2025 11:08 PM CDT [facility] RBC Morphology NORMAL 02/08/2025 11:08 PM CDT [facility] Comment See Comment 02/08/2025 11:08 PM CDT [facility] Comment:Slide treated with a lbumin. Blood BLOOD SPECIMEN / Unknown Lab Venipuncture / Unknown 02/08/2025 9:59 PM CDT 02/08/2025 10:08 PM CDT Anitra Otoole MD LAB - HEMATOLOGY DERRICK RODRIGUEZ Final Result [facility] [address] [place] [address] * (ABNORMAL) CBC W AUTO DIFFERENTIAL (02/08/2025 9:59 PM CDT) WBC 15.2(H) 4.0 - 10.7 x10E9/L 02/08/2025 11:08 PM CDT [facility] RBC Count 5.25 4.30 - 5.80 x10E12/L 02/08/2025 11:08 PM CDT [facility] Hemoglobin 15.3 13.3 - 17.5 g/dL 02/08/2025 11:08 PM CDT [facility] Hematocrit 47.2 38.7 - 51.1 % 02/08/2025 11:08 PM CDT [facility] MCV 89.9 80.0 - 98.0 fL 02/08/2025 11:08 PM CDT [facility] MCH 29.1 26.7 - 33.6 pg 02/08/2025 11:08 PM CDT [facility] MCHC 32.4 31.7 - 36.3 g/dL 02/08/2025 11:08 PM CDT [facility] RDW-CV 14.3 11.3 - 14.8 % 02/08/2025 11:08 PM CDT [facility] Platelet Count 163 150 - 420 x10E9/L 02/08/2025 11:08 PM CDT [facility] MPV 10.2 7.8 - 11.4 fL 02/08/2025 11:08 PM CDT [facility] Blood BLOOD SPECIMEN / Unknown Lab Venipuncture / Unknown 02/08/2025 9:59 PM CDT 02/08/2025 10:08 PM CDT us Anitra Otoole MD LAB - HEMATOLOGY ORDE RABLES Final Result Performing Organization Address [facility] Co de Phone Number [facility] [address] [place] [id number] * (ABNORMAL) B-TYPE NATRIURETIC PEPTIDE (02/08/2025 9:59 PM CDT) Pathologist [facility] BNP 1,281(H) <=100 pg/mL 02/08/2025 10:32 PM CDT [facility] Blood BLOOD SPECIMEN / Unknown Lab Venipuncture / Unknown 02/08/2025 9:59 PM CDT 02/08/2025 10:08 PM CDT Narrative [facility] - 02/08/2025 10:32 PM CDT A [...] ORDER MARGUERITE Final Result Performing Organization Address City/[facility]/ZIP Co de Phone Number [facility] [address] [place] [address] * LACTIC ACID BLOOD (02/08/2025 9:59 PM CDT) Lactic Acid 1.742 <=2 mmol/L 02/08/2025 10:31 PM CDT [facility] Blood BLOOD SPECIMEN / Unknown Lab Venipuncture / Unknown 02/08/2025 9:59 PM CDT 02/08/2025 10:07 PM CDT us Anitra Otoole MD LAB - CHEMISTRY ORDER MARGUERITE Final Result [facility] [address] [place] [address] * (ABNORMAL) TROPONIN-I HIGH SENSITIVE (02/08/2025 9:58 PM CDT) Troponin I High Sensitive 93(H) <=35 ng/L 02/08/2025 10:34 PM CDT [facility] Blood BLOOD SPECIMEN / Unknown Lab Venipuncture / Unknown 02/08/2025 9:58 PM CDT 02/08/2025 10:08 PM CDT us Anitra Otoole MD LAB - CHEMISTRY ORDER MARGUERITE Final Result [facility] [address] [place] [address] from Last 3 Months Insurance MEDICARE [facility] Advance Directives * Full Code (Latest Code Status on File) Date Activated Date Inactivated Comments 02/08/2025 9:34 PM 02/11/2025 4:36 PM Care Teams Supervisory Clerk Relationship Specialty Start Date End Date Chin Ward, SOFYA-MORTGAGE SALES MANAGER [address] [place] [address] PCP - General Nurse Practitioner 02/08/25
--- NOTE | 2025-02-13 15:48 | ED_ITS ---
HPI - General Adult General Chief complaint: Extremity Problem,Nontraumatic Stated complaint: swelling left lower leg-clots in lung last week Time Seen by Provider: 02/13/25 14:34 History of Present Illness HPI narrative: 74-year-old male presents to the emergency department for evaluation for left lower extremity swelling. Patient was diagnosed with pulmonary embolism on and was transferred to [facility] for thrombectomy. Patient did have the thrombectomy on Wednesday was discharged home on Wednesday and has been on Eliquis since Wednesday. Patient was hanging out with friends yesterday and they noticed that his left lower extremity was larger than his right lower extremity. Patient denies any calf or leg tenderness. Patient does have a catheterization site on the right groin and denies any excessive bruising or pain at this site. Related Data Home Medications ?Medication ?Instructions ?Recorded ?Confirmed ?Last Taken ?Type lutein 20 mg tablet 20 mg PO DAILY 06/11/21 01/17/25 12/19/21 History ginkgo biloba leaf extract 60 mg 60 mg PO BID 12/29/22 01/17/25 Unknown History capsule Allergies Allergy/AdvReac Type Severity Reaction Status Date / Time No Known Allergies Allergy Verified 02/13/25 13:02 Review of Systems Review of Systems: All systems reviewed & are unremarkable except as noted in HPI and below PMFSH Past Medical History Medical History Hypercholesterolemia Family history of diabetes mellitus Urination frequency Leg pain Painful joint Arthritis of left hip Surgical History Surgical History History of total left hip replacement (~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 Social History Social History Smoking status: Never smoker Second hand tobacco smoke exposure: No Additional smoking assessment comments: DENIES ANY FORM OF TOBACCO USE Alcohol intake: current Alcohol use details: ONE DRINK PER MONTH Substance use: never Substance use type: does not use Do You Feel Safe in your Home?: Yes Lack of Transportation: No Lack of Food: Never True Current Housing: I Have Housing Concerned About Future Housing: No Difficulty Paying Gas/Electric Bills: No Difficulty Paying for Meds: No Currently Unemployed: No Education: Grade School Difficulty w/ Childcare or Family Care: No Living arrangements: with family Occupation/Education: retired 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 HEAD: normocephalic, atraumatic. EYES: PERRLA/EOMI, conjunctivae clear. NOSE: Normal no drainage EARS:TMS clear with good light reflex. THROAT: Pharynx clear, no exudate. NECK: Supple. No adenopathy, no masses. RESPIRATORY: Airway patent, respirations nonlabored. Clear to auscultation bilaterally, no rales, rhonchi, wheezing. CARDIOVASCULAR: Regular rate and rhythm without murmurs rubs or gallops. ABDOMINAL: Soft, nontender, nondistended, normal bowel sounds MUSCULOSKELETAL: Left calf is mildly larger than and she right with no ecchymosis, no pitting edema, no calf tenderness to palpation NEURO: Alert. Cranial nerves II through XII intact. Good gait. Good coordination SKIN: Cath site at right groin has no excessive bruising with no tenderness to palpation Course Vital Signs Vital signs: Vital Signs Temperature 97.9 F 02/13/25 13:05 Pulse Rate 75 02/13/25 13:05 Respiratory Rate 16 02/13/25 13:05 Blood Pressure 152/100 H 02/13/25 13:05 Pulse Oximetry 96 02/13/25 13:05 Oxygen Delivery Room Air 02/13/25 13:05 Temperature 98.0 F 02/13/25 16:00 Pulse Rate 62 02/13/25 16:00 Respiratory Rate 20 02/13/25 16:00 Blood Pressure 143/66 H 02/13/25 16:00 Pulse Oximetry 99 02/13/25 16:00 Oxygen Delivery Room Air 02/13/25 13:05 Medical Decision Making MDM Narrative Medical decision making narrative: 74-year-old male presents emergency department for evaluation for left lower extremity swelling. Ultrasound was negative for DVT. I suspect that the left lower extremity was the source of patient's DVT leading to his pulmonary e mbolism. Ultrasound today was negative. Patient is taking Eliquis. Patient denies any symptoms today. Patient was advised to continue taking his Eliquis and have close follow-up with his primary care physician. All questions concerns were addressed. Differential Diagnosis Differential Diagnosis: DVT, cellulitis, edema Vital Signs Vital Signs: Vital Signs Temperature 97.9 F 02/13/25 13:05 Pulse Rate 75 02/13/25 13:05 Respiratory Rate 16 02/13/25 13:05 Blood Pressure 152/100 H 02/13/25 13:05 Pulse Oximetry 96 02/13/25 13:05 Oxygen Delivery Room Air 02/13/25 13:05 Temperature 98.0 F 02/13/25 16:00 Pulse Rate 62 02/13/25 16:00 Respiratory Rate 20 02/13/25 16:00 Blood Pressure 143/66 H 02/13/25 16:00 Pulse Oximetry 99 02/13/25 16:00 Oxygen Delivery Room Air 02/13/25 13:05 Imaging Data Radiologist's impression: Impressions Venous Doppler Study 02/13/25 14:23 IMPRESSION: Deep venous thrombosis of the left femoral and popliteal veins. Discharge Plan Discharge Clinical Impression: Left leg swelling Patient Disposition: Home Condition: Stable Instructions: Antibiotic Form, Leg Edema (ED) Additional Instructions: The ultrasound of your left lower extremity showed no evidence of current DVT. Continue taking your Eliquis as directed. Continue to have close follow-up with your physicians. If you have any worsening symptoms then please call or return to the emergency department. Patient Language: French Prescriptions: No Action lutein 20 mg tablet 20 mg PO DAILY Rx Instructions: give with meal/snack ginkgo biloba leaf extract 60 mg capsule 60 mg PO BID Rx Instructions: give with meal/snack atorvastatin 20 mg tablet 20 mg PO DAILY Qty: 30 5RF Follow-up/Referrals: Chin Ward APRN [Primary Care Provider] -
[2025-02-13 16:00] VITALS: BP 143/66; PULSE 62; RESP 20; TEMP 36.7; O2SAT 99
== END 2025-02-13 16:04 | disposition home or self-care (01) ==
PROVIDERS: Emergency Provider Emergency Medicine; PCP Nurse Practitioner
DX: R22.42 Localized swelling, mass and lump, left lower limb (principal); I82.432 Acute embolism and thrombosis of left popliteal vein; I82.412 Acute embolism and thrombosis of left femoral vein; Z86.711 Personal history of pulmonary embolism; E78.00 Pure hypercholesterolemia, unspecified; M16.12 Unilateral primary osteoarthritis, left hip; Z96.642 Presence of left artificial hip joint; Z79.899 Other long term (current) drug therapy; Z79.01 Long term (current) use of anticoagulants
CPT/HCPCS: 93971; 99284

== ENCOUNTER 2025-06-26 00:53 | Day surgery (SDC) | payer MEDICARE, OTHER, SELFPAY ==
[2025-06-15 11:07] VITALS: BMI 29.7
--- OUTSIDE RECORDS SUMMARY | 2025-06-26 00:56 | XMS_ITS | Clinical Summary ---
Author Organization [facility] [employer] Address [address] [place] [address] Care Team Providers Care Chinese Language Professor Name Role Phone Chin Ward Primary Care Provider Source Comments [employer],non-owned Affiliates and Associated Physician Practices is amultiple site organization consisting of ambulatory clinics and hospital sitesin [place], [place], [place] and [place]. This disclosure is being madepursuant to the Care Everywhere program and may not contain all information available regarding this patient. Last updated 18.[employer] Allergies No known active allergies Medications * [...] times daily for 30 days. 84 tablet 02/11/2025 Active Active Problems Problem Noted Date Diagnosed Date GEORGINA (acute kidney injury) 02/09/2025 Dyslipidemia 02/09/2025 Bilateral pulmonary embolism 02/08/2025 Encounters Date Type Department Care Team Description 05/17/2025 1:15 PM CDT Office Visit [facility] - Interventional Radiology [address] [place] [address] Lore Daugherty APRN-CNP Bilateral pulmonary embolism (HCC) (Primary Dx); Patent foramen ovale (HCC) 05/17/2025 9:21 AM CDT - 05/17/2025 11:59 PM CDT Hospital Encounter [facility] [address] [place] [address] Chin Ward, KOSHER SEALER-QA TEST LEAD Discharge Disposition: Home or Self Care 05/17/2025 Travel 04/03/2025 Travel from Last 3 Months Social History [...] and heating? Not hard at all 02/08/2025 [facility] [place] [facility] - Occupational Stress [...] money to buy more. Never true 02/09/20 Within the past 12 months, t he [...] any time in the past 12 m [facility], were you homeless or living in a detention (including now)? No 02/08/2025 Sex and Gender Information Value Date Recorded Sex Assigned at Male 04/03/2025 12:04 PM CDT Legal Sex Male 12:22 PM CDT Gender Identity Not on file Sexual Orientation Not on file Last Filed Vital Signs Vital Sign Reading Time Taken Comments Blood Pressure 141/77 05/17/2025 1:04 PM CDT Pulse 64 05/17/2025 1:04 PM CDT Temperature 36.6 C (97.9 F) 02/11/2025 12:04 PM CDT Respiratory Rate 13 02/11/2025 12:04 PM CDT Oxygen Saturation 96% 02/11/2025 12:04 PM CDT Inhaled Oxygen Concentration - - Weight 97.5 kg (215 lb) 05/17/2025 1:04 PM CDT Height 182.9 cm (6') 05/17/2025 1:04 PM CDT Body Mass Index 29.16 05/17/2025 1:04 PM CDT Plan of Treatment Health Maintenance [...] - Risk 60-74 years 1-dose series) 2012 DEPRESSION SCREENING 09/20/2024 COVID-19 VACCINE (2024-2 6 season) 2025 09/08/2021, 12/08/2020, 11/16/2020 INFLUENZA VACCINE (#1) 2025 HEPATITIS B VACCINE Aged Out No longe r eligible based on patient's age to complete this topic HIB VACCINE Aged Out No longer eligi ble based on patient's age to complete this topic HPV VACCINE Aged Out No longer eligi ble based on patient's age to complete this topic MENINGOCOCCAL (Group B) VACCINE SHARED DECISION-MAKING Aged Out No longer eligible based on patient's age to complete this topic MENINGOCOCCAL GROUPS A/C/Y/W VACCINE Aged Out No longer eligible b ased on patient's age to complete this topic Procedures Procedure Name Priority Date/Time Associated Diagnosis Comments VAS BILATERAL VENOUS DUPLEX LE Routine 05/17/2025 10:22 AM CDT Bilateral pulmonary embolism (HCC) from Last 3 Months Results * VAS Bilateral Venous Duplex Le (05/17/2025 10:22 AM CDT) Anatomical Region Laterality Modality Lower Extremity Ultrasound 05/17/2025 9:32 AM CDT Narrative Procedure Note Bhupinder Vásquez MD - 05/17/2025 [place] [address] Lower Extremity Venous Ultrasound Report Pat.Name: KORY ANGELES Cynthia.ID: [id number] .Date: 05/17/2025 Refer.MD: Bhupinder Vásquez Exam Time: 9:32:00 AM Study Type:LE Venous Age: 7 1950,75Y Sex: MALE Sonogrphr: Yazmin Hernandez RVT Pat. Stat.:Outpatient ICD - 9: Bilateral pulmonary embolism I26.99 CPT - 4: 20479 Reason for Study: Pulmonary Embolism History / Clinical: S/P surgery, Thrombectomy Procedures: Lower Extremity Venous - Bilateral Race: 1 Visit ID: [id number] ++++++++++++++++++++++++++++++++++++ SUMMARY: ++++++++++++++++++++++++++++++++++++ No evidence of deep or superficial venous thrombosis or insufficiency of either the right or left lower extremity. ++++++++++++++++++++++++++++++++++++ FINDINGS: ++++++++++++++++++++++++++++++++++++ Procedure: Venous duplex imaging of both lower extremities was performed using color flow and spectral Doppler analysis. Study Quality: This study is of adequate technical quality. Bilateral: All vessels seen appear patent and compressible. There was spontaneous and phasic flow seen in all the proximal major veins of both lower extremities. Appropriate augmentation with distal compression. No evidence of reflux with proximal compression. Evidence of reflux seen in the right popliteal vein. Signed 05/17/2025 06:25 PM Bhupinder Bull MD Bhupinder Vásquez MD VASCULAR LAB ORDERABLES Edite d from Last 3 Months Insurance MEDICARE [facility] Advance Directives * Full Code (Latest Code Status on File) Date Activated Date Inactivated Comments 02/08/2025 9:34 PM 02/11/2025 4:36 PM Care Teams Chinese Language Professor Relationship Specialty Start Date End Date Chin Ward, SOFYA-QA TEST LEAD [address] [place] [address] PCP - General Nurse Practitioner 02/08/25
[2025-06-26 06:35] VITALS: BP 138/71; PULSE 67; RESP 16; TEMP 36.6; O2SAT 99; BMI 27.8
[2025-06-26] MEDS: LACTATED RINGERS 1,000 ML 150 ML IV CONT (07:01)
--- NOTE | 2025-06-26 07:03 | WPDANESEPPF ---
Anes - Initial Pre Proc Eval Procedure: Operation Date: 06/26/25 08:00 Proposed Procedures p Screening Colonoscopy - Francisco Larry MD Date/Time: 06/26/25 07:03 Surgeon: Francisco Larry MD Pre Op Diagnosis: Screening Patient Data Age: 75 Gender: M Height: 1.85 m Weight: 95.5 kg Last Vital Signs Temp 36.6 C 06/26/25 06:35 Pulse 67 06/26/25 06:35 Resp 16 06/26/25 06:35 BP 138/71 06/26/25 06:35 Pulse Ox 99 06/26/25 06:35 O2 Del Method Room Air 06/26/25 06:35 Allergies Allergy/AdvReac Type Severity Reaction Status Date / Time No Known Allergies Allergy Verified 06/26/25 06:44 Home Medications ?Medication ?Instructions ?Recorded ?Confirmed ?Type atorvastatin 20 mg tablet 20 mg PO DAILY #30 tabs 03/12/25 06/26/25 Rx apixaban 5 mg tablet (Eliquis) 5 mg PO BID #60 tabs 04/03/25 06/26/25 Rx Patient hx anesthesia problems: none Family hx anesthesia problems: none Results Review: All pre-operative results and documents have been reviewed as part of the pre-operative evaluation. COUNTS INCLUDE 234 BEDS AT THE [facility] Past Medical History Medical History (Updated 06/25/25 @ 09:41 by Xander Carlson DO) Patent foramen ovale DVT of lower limb, acute Hypercholesterolemia Family history of diabetes mellitus Urination frequency Leg pain Painful joint Arthritis of left hip Surgical History Surgical History History of total left hip replacement (~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 Social History Social History Smoking status: Never smoker Second hand tobacco smoke exposure: No Additional smoking assessment comments: DENIES ANY FORM OF TOBACCO USE Alcohol intake: current Alcohol use details: ONE DRINK PER MONTH Substance use: never Substance use type: does not use Do You Feel Safe in your Home?: Yes Lack of Transportation: No Lack of Food: Never True Current Housing: I Have Housing Concerned About Future Housing: No Difficulty Paying Gas/Electric Bills: No Difficulty Paying for Meds: No Currently Unemployed: No Education: Grade School Difficulty w/ Childcare or Family Care: No Living arrangements: with family Occupation/Education: retired 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 Informed Consent: The patient's anesthetic plan and its attendant risks and benefits were discussed with the patient/family/POA. Questions were solicited and answers provided to the satisfaction of the patient/family/POA.
--- NOTE | 2025-06-26 07:56 | PM.IMHP ---
H&P: HPI History of Present Illness Date/Time: 06/26/25 07:56 Chief Complaint: Screening colonoscopy Narrative: This is the patient's first colonoscopy. There are no GI symptoms and there is no family history of colorectal cancer. Review of Systems Review of Systems: All systems reviewed & are unremarkable except as noted in HPI and below PMFSH Past Medical History Medical History (Updated 06/26/25 @ 07:56 by Francisco Larry MD) Patent foramen ovale DVT of lower limb, acute Hypercholesterolemia Family history of diabetes mellitus Urination frequency Leg pain Painful joint Arthritis of left hip Surgical History Surgical History History of total left hip replacement (~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 Social History Social History Smoking status: Never smoker Second hand tobacco smoke exposure: No Additional smoking assessment comments: DENIES ANY FORM OF TOBACCO USE Alcohol intake: current Alcohol use details: ONE DRINK PER MONTH Substance use: never Substance use type: does not use Do You Feel Safe in your Home?: Yes Lack of Transportation: No Lack of Food: Never True Current Housing: I Have Housing Concerned About Future Housing: No Difficulty Paying Gas/Electric Bills: No Difficulty Paying for Meds: No Currently Unemployed: No Education: Grade School Difficulty w/ Childcare or Family Care: No Living arrangements: with family 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/Education: 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- Gender identity (if verbalized by the patient): Male Spiritual care concerns: No Meds Home Medications and Allergies Home Medications ?Medication ?Instructions ?Recorded ?Confirmed ?Type atorvastatin 20 mg tablet 20 mg PO DAILY #30 tabs 03/12/25 06/26/25 Rx apixaban 5 mg tablet (Eliquis) 5 mg PO BID #60 tabs 04/03/25 06/26/25 Rx Allergies Allergy/AdvReac Type Severity Reaction Status Date / Time No Known Allergies Allergy Verified 06/26/25 06:44 Vital Signs Vital Signs - 24 hr 06/26/25 06:35 Temperature 97.8 F Pulse Rate 67 Respiratory Rate 16 Blood Pressure 138/71 Pulse Oximetry 99 Oxygen Delivery Room Air Exam Const: General: cooperative and healthy appearing Resp: Effort & Inspection: normal respiratory effort and able to speak in complete sentences Auscultation: clear to auscultation bilaterally Cardio: Rate: regular rate Rhythm: regular rhythm GI: Inspection: normal to inspection GI Palp: No No hepatosplenomegaly present Auscultation: normal bowel sounds Rectal Exam: deferred Skin: General skin exam: normal color Psych: Appearance: grossly normal Mental Status: mental status grossly normal Assessment and Plan Assessment and plan (1) Encounter for screening colonoscopy: Code(s): Z12.11 - Encounter for screening for malignant neoplasm of colon Status: Acute Assessment and Plan: The patient is deemed a good candidate for the procedure. Consent signed. Will proceed.
[2025-06-26] MEDS: EPINEPHrine INJ 1 MG/10 ML SYRINGE XX (08:23)
[2025-06-26 08:34] VITALS: BP 122/75; PULSE 76; RESP 17; O2SAT 99
--- NOTE | 2025-06-26 08:35 | S_PTH ---
PATIENT: Sancho Morales LOC: [facility] U#:[id number] AGE/SX: 75/M ROOM: RE06/26/[address]: Francisco Larry MD : 1950 BED: DIS: 06/26/2025 SPEC #: [id number] RECD: 06/26/25 09:16 STATUS: MARY KAY REQ #: [id number] JAGDISH: 06/26/25 08:[address]: Francisco Larry DEPT: [facility] Surgical RECD BY: Andrei Niño ENTERED: 06/26/25 09:17 SP TYPE: Surgical OTHR DR: Chin Ward APRN Tissues: A - Colon Polypectomy B - Colon Polypectomy C - Rectal Polyp Procedures: Hematoxylin and Eosin Stain Gross and Microscopic Level 4
[2025-06-26 08:44] VITALS: BP 128/84; PULSE 72; RESP 16; O2SAT 99
[2025-06-26 08:54] VITALS: BP 142/84; PULSE 65; RESP 21; O2SAT 99
== END 2025-06-26 09:02 | disposition home or self-care (01) ==
PROVIDERS: PCP Nurse Practitioner; Referring Provider Nurse Practitioner; Visit Provider Internal Medicine Gastroenterology
PROC: 0DJD8ZZ Inspection of Lower Intestinal Tract, Via Natural or Artificial Opening Endoscopic (ICD-10-PCS; CPT 45378; principal; 2025-06-26 08:00)
DX: Z12.11 Encounter for screening for malignant neoplasm of colon (principal); D12.5 Benign neoplasm of sigmoid colon; D12.3 Benign neoplasm of transverse colon; K62.1 Rectal polyp; E78.00 Pure hypercholesterolemia, unspecified; R35.0 Frequency of micturition; M16.12 Unilateral primary osteoarthritis, left hip; Q21.12 Patent foramen ovale; Z79.01 Long term (current) use of anticoagulants; Z98.890 Other specified postprocedural states; Z86.718 Personal history of other venous thrombosis and embolism; Z80.3 Family history of malignant neoplasm of breast; Z80.7 Family history of other malignant neoplasms of lymphoid, hematopoietic and related tissues
CPT/HCPCS: 45385; 88305; J0168; J2003; J2704; J7120